=== PATIENT | male | born 1985 | race American Indian/Alaskan Native ===

== ENCOUNTER 2018-08-03 10:09 | Emergency (ER) | payer OTHER ==
[2018-08-03 10:15] VITALS: BP 163/110
[2018-08-03] MEDS ORDERED: XYLOCAINE 1% MPF 5 mL INFILTRATI ONE (10:40)
--- NOTE | 2018-08-03 10:40 | Emergency Department Report ---
- General Chief Complaint: Extremity Injury, Upper Stated Complaint: R FINGER INFECTED Time Seen by Provider: 08/03/18 10:33 Source: patient Mode of arrival: Ambulatory Limitations: No Limitations - History of Present Illness Initial Comments: Pt is a 32 yo male who presents to the ED with c/o edema and pain surrounding the nail bed of the right middle finger that began a week ago. The patient states that he bites his nails and bit his nail too short last week. 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 He denies any drainage. He denies any fever. The patient denies ever having this previously. He is able to move the digit without any difficulty. Pt also has a hx of HTN and is supposed to be taking medication but does not take it. - Related Data Previous Rx's Medication Instructions Recorded Last Taken Type Sulfamethoxazole/Trimethoprim 1 each PO BID 7 Days #14 tablet 08/03/18 Unknown Rx [Bactrim DS TAB] Allergies Allergy/AdvReac Type Severity Reaction Status Date / Time No Known Allergies Allergy Unverified 08/03/18 10:10 ED Review of Systems ROS: Stated complaint: R FINGER INFECTED Other details as noted in HPI Comment: All other systems reviewed and negative ED Past Medical Hx - Past Medical History Hx Hypertension: Yes - Surgical History Past Surgical History?: No - Social History Smoking Status: Current Every Day Smoker Substance Use Type: Alcohol, Marijuana - Medications Home Medications: Home Medications Medication Instructions Recorded Confirmed Last Taken Type Sulfamethoxazole/Trimethoprim 1 each PO BID 7 Days #14 tablet 08/03/18 Unknown Rx [Bactrim DS TAB] ED Physical Exam - General Limitations: No Limitations General appearance: alert, in no apparent distress - Head Head exam: Present: atraumatic, normocephalic - Eye Eye exam: Present: normal appearance - ENT ENT exam: Present: mucous membranes moist - Skin Skin exam: Present: other (edema and fluctuance surrounding the nail bed of the right middle finger, nails are very short from biting, exam findings consistent with paronychia) ED Course Vital Signs 08/03/18 10:12 Temperature 98.3 F Pulse Rate 83 Respiratory 18 Rate Blood Pressure 163/110 O2 Sat by Pulse 99 Oximetry - I & D Right Dorsal Finger Type of Procedure: Simple Site: right middle finger paronychia surrounding the nail bed Blade Size: 11 I & D Procedure: betadine prep, sterile drapes applied, sterile dressing applied Progress: paronychia present to the right middle finger, 1.5 cm incision made, moderate amount of purulent drainage, digital block with 5 cc used, pt tolerated well, prepped with betadine, sterile drapes used, sterile dressing applied ED Medical Decision Making - Medical Decision Making Pt presents with paronychia, I&D performed with purulent drainage, pt placed on batrim. Advised to follow up in the next 2-3 days with PCP. Take all medication as prescribed. Return to ED for new/worsening symptoms. Critical care attestation.: If time is entered above; I have spent that time in minutes in the direct care of this critically ill patient, excluding procedure time. ED Disposition Clinical Impression: Paronychia Disposition: - TO HOME OR SELFCARE Is pt being admited?: No Does the pt Need Aspirin: No Condition: Stable Instructions: Paronychia (ED) Additional Instructions: Follow up with your primary care doctor in the next 2-3 days. Take all medication as prescribed. NO hot tub, pool, bath tub, or dirty water. Return to the emergency room for any new or worsening symptoms. Prescriptions: Sulfamethoxazole/Trimethoprim [Bactrim DS TAB] 1 each PO BID 7 Days #14 tablet Referrals: PACO LAW MD [Primary Care Provider] - 2-3 Days Time of Disposition: 11:36 Print Language: [place] CITIZEN
== END 2018-08-03 11:45 | disposition home or self-care (01) ==
LOC: ED 10:09
DX: L03.011 Cellulitis of right finger (principal); I10 Essential (primary) hypertension; F17.200 Nicotine dependence, unspecified, uncomplicated; F12.10 Cannabis abuse, uncomplicated

== ENCOUNTER 2018-11-28 21:44 | Emergency (ER) | payer OTHER ==
[2018-11-28 22:00] VITALS: BP 163/104
[2018-11-28 23:06] LABS: Basophils # (Auto) 0.1 K/mm3 (0.0-0.1); Basophils % (Auto) 0.9 % (0.0-1.8); Eosinophils % (Auto) 0.7 % (0.0-4.3); Hematocrit 43.1 % (35.5-45.6); Hemoglobin 14.4 gm/dl (11.8-15.2); Lymphocytes # (Auto) 2.1 K/mm3 (1.2-5.4); Lymphocytes % (Auto) 35.4 % (13.4-35.0); Mean Corpuscular HGB Conc 34 % (32-34); Mean Corpuscular Volume 87 fl (84-94); Monocytes # (Auto) 0.7 K/mm3 (0.0-0.8); Monocytes % (Auto) 11.7 % (0.0-7.3); Platelet Count 228 K/mm3 (140-440); Red Blood Count 4.94 M/mm3 (3.65-5.03); Red Cell Distribution Width 14.8 % (13.2-15.2)
[2018-11-28 23:20] LABS: Alanine Aminotransferase 13 units/L (7-56); Albumin 4.4 g/dL (3.9-5); BUN/Creatinine Ratio 13; Blood Urea Nitrogen 10 mg/dL (9-20); Calcium 9.6 mg/dL (8.4-10.2); Hemolysis Index 13
[2018-11-29] MEDS ORDERED: ZITHROMAX PO ONE (00:11)
[2018-11-29] MEDS ORDERED: ROCEPHIN IM ONE (00:11)
[2018-11-29] MEDS ORDERED: XYLOCAINE 1% MPF 5 mL INFILTRATI ONE (00:11)
--- NOTE | 2018-11-29 00:36 | XRay Report ---
CHEST PA AND LATERAL VIEWS INDICATION: cough, hemoptysis. COMPARISON: None. FINDINGS: Support devices: None. Heart: Within normal limits. Lungs/Pleura: No acute pulmonary or pleural findings. IMPRESSION: 1. No significant abnormality. Signer Name: Rufino Hoffman MD Signed: 11/29/2018 12:31 AM Workstation Name: [id number]
--- NOTE | 2018-11-29 00:54 | Emergency Department Report ---
ED General Adult HPI - General Chief complaint: Headache Stated complaint: HIGH BP Time Seen by Provider: 11/28/18 23:25 Source: patient Mode of arrival: Ambulatory Limitations: No Limitations - History of Present Illness Initial comments: Patient is a 33 yo AA male with no past medical history who presents to the ED with c/o acute onset persistent penile discharge and urinary urgency and frequency and dysuria x 2 days. Patient also c/o persistent dry cough with on episode of hemoptysis which he describes as blood mixed with phlegm. Patient denies fever, chills, nausea, vomiting, abdominal pain, diarrhea, dizziness, chest pain or shortness of breath, testicular pain, low back pain or hematuria. Patient admits to smoking one pack a day of cigarettes. MD Complaint: dysuria, penile discharge, dry cough with hemoptysis -: Sudden, days(s) (2) Location: chest, genitals Radiation: non-radiation Severity scale (0 -10): 9 Quality: aching, sharp Consistency: intermittent Improves with: none Worsens with: none Associated Symptoms: denies other symptoms, cough. denies: confusion, chest pain, diaphoresis, fever/chills, headaches, loss of appetite, malaise, nausea/vomiting, rash, seizure, shortness of breath, syncope, weakness Treatments Prior to Arrival: none - Related Data Previous Rx's Medication Instructions Recorded Last Taken Type Ibuprofen 800 mg PO Q6HR PRN #15 tablet 08/03/18 Unknown Rx Ibuprofen [Motrin] 600 mg PO Q8H PRN #15 tablet 11/29/18 Unknown Rx Sulfamethoxazole/Trimethoprim 1 each PO BID 10 Days #20 tablet 11/29/18 Unknown Rx [Bactrim DS TAB] Allergies Allergy/AdvReac Type Severity Reaction Status Date / Time No Known Allergies Allergy Unverified 08/03/18 10:10 ED Review of Systems ROS: Stated complaint: HIGH BP Other details as noted in HPI Constitutional: denies: chills, fever Eyes: denies: eye pain, eye discharge, vision change ENT: denies: ear pain, throat pain Respiratory: cough, other (Hemoptysis). denies: shortness of breath, wheezing Cardiovascular: denies: chest pain, palpitations Endocrine: no symptoms reported Gastrointestinal: denies: abdominal pain, nausea, diarrhea Genitourinary: urgency, dysuria, discharge. denies: testicular pain, testicular mass Musculoskeletal: denies: back pain, joint swelling, arthralgia Skin: denies: rash, lesions Neurological: denies: headache, weakness, paresthesias Psychiatric: denies: anxiety, depression Hematological/Lymphatic: denies: easy bleeding, easy bruising ED Past Medical Hx - Past Medical History Previous Medical History?: Yes Hx Hypertension: Yes - Surgical History Past Surgical History?: No - Social History Smoking Status: Current Every Day Smoker - Medications Home Medications: Home Medications Medication Instructions Recorded Confirmed Last Taken Type Ibuprofen 800 mg PO Q6HR PRN #15 tablet 08/03/18 Unknown Rx Ibuprofen [Motrin] 600 mg PO Q8H PRN #15 tablet 11/29/18 Unknown Rx Sulfamethoxazole/Trimethoprim 1 each PO BID 10 Days #20 tablet 11/29/18 Unknown Rx [Bactrim DS TAB] ED Physical Exam - General Limitations: No Limitations General appearance: alert, in no apparent distress - Head Head exam: Present: atraumatic, normocephalic, normal inspection - Eye Eye exam: Present: normal appearance, PERRL, EOMI. Absent: scleral icterus, conjunctival injection, nystagmus Pupils: Present: normal accommodation - ENT ENT exam: Present: normal exam, normal orophraynx, mucous membranes moist, TM's normal bilaterally, normal external ear exam - Neck Neck exam: Present: normal inspection, full ROM. Absent: tenderness - Respiratory Respiratory exam: Present: normal lung sounds bilaterally. Absent: respiratory distress, wheezes, rales, rhonchi, chest wall tenderness, accessory muscle use, decreased breath sounds - Cardiovascular Cardiovascular Exam: Present: regular rate, normal rhythm, normal heart sounds. Absent: systolic murmur, diastolic murmur, rubs, gallop - GI/Abdominal GI/Abdominal exam: Present: soft, normal bowel sounds. Absent: tenderness, guarding, rebound - Rectal Rectal exam: Present: deferred - Extremities Exam Extremities exam: Present: normal inspection, full ROM, normal capillary refill - Back Exam Back exam: Present: normal inspection, full ROM. Absent: CVA tenderness (L), muscle spasm, paraspinal tenderness, vertebral tenderness - Neurological Exam Neurological exam: Present: alert, oriented X3, CN II-XII intact, normal gait, reflexes normal - Psychiatric Psychiatric exam: Present: normal affect, normal mood - Skin Skin exam: Present: warm, dry, intact, normal color. Absent: rash ED Course Vital Signs 11/28/18 11/28/18 21:56 22:29 Temperature 98.4 F 98.4 F Pulse Rate 79 79 Respiratory 18 18 Rate Blood Pressure 163/104 Blood Pressure 163/104 [Right] O2 Sat by Pulse 100 100 Oximetry - Reevaluation(s) Reevaluation #1: 11/29/18 01:03 Patient is alert and oriented 3 and is not in distress but anxious. Lab test results were reviewed and are unremarkable. Chest x-ray shows no acute cardiopulmonary abnormalities. Urinalysis shows acute urinary tract infection, sign of STD. Patient was treated for pain and empirically treated in the ED for suspected STD. On reevaluation, patient feeling better and patient is sent home on medications and advised to follow-up with [facility] for further tests and evaluation. Patient was advised to ensure that his sexual partner also gets tested and treated at the [facility]. Patient advised to return to the ED immediately if symptoms get worse. 11/29/18 01:49 ED Medical Decision Making - Lab Data Result diagrams: 11/28/18 22:50 11/28/18 22:50 - Radiology Data Radiology results: report reviewed, image reviewed Chest x-ray shows no acute cardiopulmonary abnormalities - Medical Decision Making Patient is alert and oriented 3 and is not in distress but anxious. Lab test results were reviewed and are unremarkable. Chest x-ray shows no acute cardiopu lmonary abnormalities. Urinalysis shows acute urinary tract infection, sign of STD. Patient was treated for pain and empirically treated in the ED for suspected STD. On reevaluation, patient feeling better and patient is sent home on medications and advised to follow-up with [facility] for further tests and evaluation. Patient was advised to ensure that his sexual partner also gets tested and treated at the [facility]. Patient advised to return to the ED immediately if symptoms get worse. - Differential Diagnosis acute bronchitis, STD, urethritis Critical care attestation.: If time is entered above; I have spent that time in minutes in the direct care of this critically ill patient, excluding procedure time. ED Disposition Clinical Impression: Acute urinary tract infection, STD (sexually transmitted disease), Urethritis, unspecified Acute bronchitis Qualifiers: Bronchitis organism: other organism Qualified Code(s): J20.8 - Acute bronchitis due to other specified organisms Disposition: DC- TO HOME OR SELFCARE Is pt being admited?: No Does the pt Need Aspirin: No Condition: Stable Instructions: Acute Bronchitis (ED), Nonspecific Urethritis in Men (ED), Sexually Transmitted Diseases (ED) Additional Instructions: Take medications with food, drink plenty of fluids and follow-up with your primary care physician [facility] in 3-5 days for reevaluation and test. Return to the ED immediately if symptoms get worse. Please ensure that his sexual partner also gets treated at the [facility]. Prescriptions: Sulfamethoxazole/Trimethoprim [Bactrim DS TAB] 1 each PO BID 10 Days #20 tablet Ibuprofen [Motrin] 600 mg PO Q8H PRN #15 tablet PRN Reason: Pain Referrals: PACO LAW MD [Primary Care Provider] - 3-5 Days [facility] [Outside] - 3-5 Days Forms: STI Treatment and Prevention Time of Disposition: 01:56 Print Language: [place]UNDI[place]
[2018-11-29 01:19] LABS: Bilirubin,Urine NEG (Negative); Blood,Urine NEG (Negative); Color,Urine Amber (Yellow); Mucus,Urine 3+ /HPF; Protein,Urine <15 mg/dL mg/dL (Negative)
== END 2018-11-29 02:10 | disposition home or self-care (01) ==
LOC: ED 21:44
DX: N39.0 Urinary tract infection, site not specified (principal); A64 Unspecified sexually transmitted disease; J20.9 Acute bronchitis, unspecified; F17.200 Nicotine dependence, unspecified, uncomplicated; I10 Essential (primary) hypertension; Z79.1 Long term (current) use of non-steroidal anti-inflammatories (NSAID)
CPT/HCPCS: 36415; 71046; 80053; 81001; 85025; 96372; 99284; J0696

== ENCOUNTER 2019-01-13 10:09 | Emergency (ER) | payer SELFPAY ==
[2019-01-13 10:17] VITALS: BP 146/101
--- NOTE | 2019-01-13 10:43 | Emergency Department Report ---
ED General Adult HPI - General Chief complaint: Skin Rash Stated complaint: WHITE BUMPS ON BUTTOCKS/DEHYDRATED Time Seen by Provider: 01/13/19 10:35 Source: patient Mode of arrival: Ambulatory Limitations: No Limitations - History of Present Illness Initial comments: Patient is 33 years old male with no significant past medical history except for hemorrhoids. Patient presented to the ER complaining of itching and a bulging mass on and off from his anal area. Patient stated that he was diagnosed as hemorrhoids before but did not follow-up with his surgeon. Patient denied any fever or chills. No hematochezia, melena or hematemesis. - Related Data Previous Rx's Medication Instructions Recorded Last Taken Type Ibuprofen 800 mg PO Q6HR PRN #15 tablet 08/03/18 Unknown Rx Ibuprofen [Motrin] 600 mg PO Q8H PRN #15 tablet 11/29/18 Unknown Rx Sulfamethoxazole/Trimethoprim 1 each PO BID 10 Days #20 tablet 11/29/18 Unknown Rx [Bactrim DS TAB] Allergies Allergy/AdvReac Type Severity Reaction Status Date / Time No Known Allergies Allergy Unverified 08/03/18 10:10 ED Review of Systems ROS: Stated complaint: WHITE BUMPS ON BUTTOCKS/DEHYDRATED Other details as noted in HPI Comment: All other systems reviewed and negative Constitutional: denies: chills, fever Cardiovascular: denies: chest pain Gastrointestinal: denies: abdominal pain, nausea Musculoskeletal: denies: back pain Neurological: denies: headache ED Past Medical Hx - Past Medical History Previous Medical History?: Yes Hx Hypertension: Yes Hx Asthma: Yes - Surgical History Past Surgical History?: No - Social History Smoking Status: Current Every Day Smoker Substance Use Type: None - Medications Home Medications: Home Medications Medication Instructions Recorded Confirmed Last Taken Type Ibuprofen 800 mg PO Q6HR PRN #15 tablet 08/03/18 Unknown Rx Ibuprofen [Motrin] 600 mg PO Q8H PRN #15 tablet 11/29/18 Unknown Rx Sulfamethoxazole/Trimethoprim 1 each PO BID 10 Days #20 tablet 11/29/18 Unknown Rx [Bactrim DS TAB] ED Physical Exam - General Limitations: No Limitations General appearance: alert, in no apparent distress - Head Head exam: Present: atraumatic, normocephalic, normal inspection - ENT ENT exam: Present: normal exam, normal orophraynx - Respiratory Respiratory exam: Present: normal lung sounds bilaterally - Cardiovascular Cardiovascular Exam: Present: regular rate, normal rhythm, normal heart sounds - GI/Abdominal GI/Abdominal exam: Present: soft, normal bowel sounds. Absent: distended, tenderness, guarding, rebound, rigid, organomegaly, mass, bruit, pulsatile mass, hernia - Rectal Rectal exam: Present: hemorrhoids - Back Exam Back exam: Present: normal inspection, full ROM. Absent: CVA tenderness (R), CVA tenderness (L) - Neurological Exam Neurological exam: Present: alert, oriented X3, CN II-XII intact, normal gait - Skin Skin exam: Present: warm, intact, normal color ED Course Vital Signs 01/13/19 10:15 Temperature 97.8 F Pulse Rate 68 Respiratory 16 Rate Blood Pressure 146/101 [Left] O2 Sat by Pulse 100 Oximetry Critical care attestation.: If time is entered above; I have spent that time in minutes in the direct care of this critically ill patient, excluding procedure time. ED Disposition Clinical Impression: Hemorrhoids Disposition: DC-01 TO HOME OR SELFCARE Is pt being admited?: No Condition: Stable Instructions: Hemorrhoids (ED) Referrals: NAV THOMPSON MD [Staff Physician] - 3-5 Days
== END 2019-01-13 11:14 | disposition home or self-care (01) ==
LOC: ED 10:09
DX: K64.9 Unspecified hemorrhoids (principal); I10 Essential (primary) hypertension; J45.909 Unspecified asthma, uncomplicated; F17.200 Nicotine dependence, unspecified, uncomplicated

== ENCOUNTER 2019-03-05 03:18 | Emergency (ER) | payer OTHER ==
--- NOTE | 2019-03-05 05:26 | Emergency Department Report ---
ED Eye Problem HPI - General Chief complaint: Eye Problems Stated complaint: LT EYE REDNESS Time Seen by Provider: 03/05/19 05:08 Source: patient Mode of arrival: Ambulatory Limitations: No Limitations - History of Present Illness Initial comments: pt is a 33-year-old male presents emergency room with complaints of left eye irritation and redness for 4 days. He has had associated drainage from the eye, crusting, eyelash matting. Denies any vision changes, contact lens use, getting anything into the eye. Denies any foreign body sensation. pt states that he has been told he has high blood pressure but is not taking any medication for it. He denies any allergies to medications. - Related Data Previous Rx's Medication Instructions Recorded Last Taken Type Ibuprofen 800 mg PO Q6HR PRN #15 tablet 08/03/18 Unknown Rx Ibuprofen [Motrin] 600 mg PO Q8H PRN #15 tablet 11/29/18 Unknown Rx Sulfamethoxazole/Trimethoprim 1 each PO BID 10 Days #20 tablet 11/29/18 Unknown Rx [Bactrim DS TAB] Hydrocortisone [Anucort-HC SUPPOS] 25 mg RC BID #12 supp.rect 01/13/19 Unknown Rx Erythromycin [Erythromycin Ophth 1 applic OS QID 7 Days #1 tube 03/05/19 Unknown Rx Oint] Allergies Allergy/AdvReac Type Severity Reaction Status Date / Time No Known Allergies Allergy Unverified 08/03/18 10:10 ED Review of Systems ROS: Stated complaint: LT EYE REDNESS Other details as noted in HPI Comment: All other systems reviewed and negative ED Past Medical Hx - Past Medical History Previous Medical History?: Yes Hx Hypertension: Yes Hx Asthma: Yes - Surgical History Past Surgical History?: No - Social History Smoking Status: Never Smoker Substance Use Type: None - Medications Home Medications: Home Medications Medication Instructions Recorded Confirmed Last Taken Type Ibuprofen 800 mg PO Q6HR PRN #15 tablet 08/03/18 Unknown Rx Ibuprofen [Motrin] 600 mg PO Q8H PRN #15 tablet 11/29/18 Unknown Rx Sulfamethoxazole/Trimethoprim 1 each PO BID 10 Days #20 tablet 11/29/18 Unknown Rx [Bactrim DS TAB] Hydrocortisone [Anucort-HC SUPPOS] 25 mg RC BID #12 supp.rect 01/13/19 Unknown Rx Erythromycin [Erythromycin Ophth 1 applic OS QID 7 Days #1 tube 03/05/19 Unknown Rx Oint] ED Physical Exam - General Limitations: No Limitations General appearance: alert, in no apparent distress - Head Head exam: Present: atraumatic, normocephalic - Eye Eye exam: Present: PERRL, EOMI, conjunctival injection (left), other (small amount of crusting present to the left eye lid). Absent: periorbital swelling, periorbital tenderness - ENT ENT exam: Present: mucous membranes moist - Neurological Exam Neurological exam: Present: alert, oriented X3 - Psychiatric Psychiatric exam: Present: normal affect, normal mood - Skin Skin exam: Present: warm, dry, intact ED Course Vital Signs 03/05/19 03/05/19 03:20 05:46 Temperature 97.3 F L Pulse Rate 68 66 Respiratory 18 16 Rate Blood Pressure 156/103 Blood Pressure 165/106 [Right] O2 Sat by Pulse 100 99 Oximetry ED Medical Decision Making - Medical Decision Making pt is a 33-year-old male presents emergency room with complaints of left eye irritation and redness for 4 days. He has had associated drainage from the eye, crusting, eyelash matting. Denies any vision changes, contact lens use, getting anything into the eye. Denies any foreign body sensation. pt states that he has been told he has high blood pressure but is not taking any medication for it. He denies any allergies to medications. vitals with elevated blood pressure otherwise normal. on exam: small amount of crusting present to the left eye lid, left conjunctival injection, PERRL, EOMI. pt given prescription for erythromycin ophthalmic ointment. advised pt to please use medication as prescribed. please wash your hands frequently. wash your bed sheets/pillowcase. Please do not rub the eye at all. Follow-up with a primary care doctor in the next 2-3 days for reexamination. Return to the emergency room for any new or worsening symptoms. discussed with pt the elevation in his blood pressure. advised pt to keep a blood pressure log, take his pressure three times a day and take it to his PCP. discussed to eat a low sodium diet. - Differential Diagnosis conjunctivitis, iritis, foreign body, horedeolum, chalazion Critical care attestation.: If time is entered above; I have spent that time in minutes in the direct care of this critically ill patient, excluding procedure time. ED Disposition Clinical Impression: Conjunctivitis Qualifiers: Conjunctivitis type: acute Acute conjunctivitis type: unspecified Laterality: left Qualified Code(s): H10.32 - Unspecified acute conjunctivitis, left eye Disposition: TO HOME OR SELFCARE Is pt being admited?: No Does the pt Need Aspirin: No Condition: Stable Instructions: Conjunctivitis (ED) Additional Instructions: Please use medication as prescribed. please wash your hands frequently. wash your bed sheets/pillowcase. Please do not rub the eye at all. Follow-up with a primary care doctor in the next 2-3 days for reexamination. Return to the emergency room for any new or worsening symptoms. Prescriptions: Erythromycin [Erythromycin Ophth Oint] 1 applic OS QID 7 Days #1 tube Referrals: PRIMARY CARE, [Primary Care Provider] - 2-3 Days Time of Disposition: 05:24 Print Language: TURKM[place]
[2019-03-05 05:49] VITALS: BP 165/106
== END 2019-03-05 05:46 | disposition home or self-care (01) ==
LOC: ED 03:18
DX: H10.9 Unspecified conjunctivitis (principal); I10 Essential (primary) hypertension; J45.909 Unspecified asthma, uncomplicated; Z79.899 Other long term (current) drug therapy

== ENCOUNTER 2019-05-08 10:33 | Emergency (ER) | payer OTHER ==
[2019-05-08 12:54] VITALS: BP 167/111
[2019-05-08] MEDS ORDERED: hydrALAZINE 25 MG TAB PO ONE (13:19)
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
== END 2019-05-08 13:48 | disposition home or self-care (01) ==
LOC: ED 10:33
DX: S39.012A Strain of muscle, fascia and tendon of lower back, initial encounter (principal); S16.1XXA Strain of muscle, fascia and tendon at neck level, initial encounter; I10 Essential (primary) hypertension; J45.909 Unspecified asthma, uncomplicated; F17.200 Nicotine dependence, unspecified, uncomplicated; Z79.899 Other long term (current) drug therapy; V43.62XA Car passenger injured in collision with other type car in traffic accident, initial encounter; Y93.89 Activity, other specified; Y92.410 Unspecified street and highway as the place of occurrence of the external cause; Y99.8 Other external cause status

== ENCOUNTER 2019-05-11 17:43 | Emergency (ER) | payer SELFPAY ==
[2019-05-11 17:49] VITALS: BP 177/117
== END 2019-05-11 18:00 | disposition left against medical advice (07) ==
LOC: ED 17:43
DX: M54.9 Dorsalgia, unspecified (principal); Z53.21 Procedure and treatment not carried out due to patient leaving prior to being seen by health care provider

== ENCOUNTER 2019-05-12 22:32 | Emergency (ER) | payer SELFPAY ==
[2019-05-12 23:14] VITALS: BP 152/101
== END 2019-05-12 23:51 | disposition left against medical advice (07) ==
LOC: ED 22:32
DX: Z53.21 Procedure and treatment not carried out due to patient leaving prior to being seen by health care provider (principal)

== ENCOUNTER 2019-05-13 04:32 | Emergency (ER) | payer SELFPAY ==
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
[2019-05-13] MEDS ORDERED: IBUPROFEN 800 MG TAB PO ONE (08:47)
[2019-05-13 08:58] VITALS: BP 138/88
== END 2019-05-13 08:57 | disposition left against medical advice (07) ==
LOC: ED 04:32
DX: S39.012S Strain of muscle, fascia and tendon of lower back, sequela (principal); Y92.89 Other specified places as the place of occurrence of the external cause

== ENCOUNTER 2019-07-21 13:39 | Emergency (ER) | payer SELFPAY ==
--- NOTE | 2019-07-21 17:30 | Emergency Department Report ---
Chief Complaint: Urogenital-Male Stated Complaint: STD Time Seen by Provider: 07/21/19 15:53 - HPI History of Present Illness: pt presents with routine STD testing states that he had unprotected intercourse no dysuria no penile no testicular testicular pain or edema no n/v/d no fever PMHx HTN, states he has not seen a PCP in awhile vitals with slightly elevated BP, otherwise normal he has no symptoms related to BP he is asymptomatic regarding STD he is requesting STD testing advised pt please follow up with the health department and a primary care clinic. please receive full STD testing. avoid sexual intercourse. have partners tested and treated. eat a low sodium diet. incorporate daily exercise. keep a blood pressure log and take your blood pressure three times a day. return to the emergency room for any new or worsening symptoms. Patient presenting with nonmedical emergency at this time, medical screen examination performed there is no threat to life or limb at this time Patient referred to the appropriate resources Discussed strict return precautions with patient MSE screening note: Focused history and physical exam performed. ED Disposition for MSE Clinical Impression: Concern about STD in male without diagnosis, Elevated blood pressure reading Disposition: MED SCREENING EXAM-LEFT Is pt being admited?: No Does the pt Need Aspirin: No Condition: Stable Instructions: Sexually Transmitted Diseases (ED), Safe Sex (ED), Chronic Hype rtension (ED) Additional Instructions: please follow up with the health department and a primary care clinic. please receive full STD testing. avoid sexual intercourse. have partners tested and treated. eat a low sodium diet. incorporate daily exercise. keep a blood pressure log and take your blood pressure three times a day. return to the emergency room for any new or worsening symptoms. Referrals: [facility] [Outside] - 2-3 Days CHANDRAKANT NEVILLE MD [Staff Physician] - 2-3 Days [facility] [Outside] - 2-[address] [facility] [Outside] - 2-3 Days Time of Disposition: 17:28 Print Language: CHINESE
[2019-07-21 17:49] VITALS: BP 160/98
== END 2019-07-21 17:49 | disposition left against medical advice (07) ==
LOC: ED 13:39
DX: I10 Essential (primary) hypertension (principal); Z71.1 Person with feared health complaint in whom no diagnosis is made
CPT/HCPCS: 99282

== ENCOUNTER 2019-07-25 21:05 | Emergency (ER) | payer SELFPAY ==
[2019-07-25 21:12] VITALS: BP 176/117
--- NOTE | 2019-07-25 21:42 | Event Note ---
ED Screening Note Date of service: 07/25/19 Time: 21:40 ED Screening Note: This is a 33 y.o. M. that presents to the ER with pain to right medial great to for 3 days. This initial assessment/diagnostic orders/clinical plan/treatment(s) is/are subject to change based on patients health status, clinical progression and re- assessment by fellow clinical providers in the ED. Further treatment and workup at subsequent clinical providers discretion. Patient/guardian urged not to elope from the ED as their condition may be serious if not clinically assessed and managed. Initial orders include: XR right toes
--- NOTE | 2019-07-25 22:28 | XRay Report ---
RIGHT TOES 3 VIEWS INDICATION / CLINICAL INFORMATION: Right great toe pain. COMPARISON: None available. FINDINGS: BONES / JOINT(S): No acute fracture or subluxation. No significant arthritis. No erosions are seen. SOFT TISSUES: No significant abnormality. ADDITIONAL FINDINGS: None. Signer Name: Sylvester Patel MD Signed: 07/25/2019 10:24 PM Workstation Name: [id number]
== END 2019-07-25 23:00 | disposition left against medical advice (07) ==
LOC: ED 21:05
DX: M79.674 Pain in right toe(s) (principal); Z53.21 Procedure and treatment not carried out due to patient leaving prior to being seen by health care provider

== ENCOUNTER 2019-07-29 00:15 | Emergency (ER) | payer SELFPAY ==
[2019-07-29 02:13] VITALS: BP 150/99
[2019-07-29] MEDS ORDERED: IBUPROFEN 800 MG TAB PO ONE (02:46)
--- NOTE | 2019-07-29 03:15 | Emergency Department Report ---
ED Lower Extremity HPI - General Chief Complaint: Extremity Injury, Lower Stated Complaint: FEET SWELLING W/PAIN Time Seen by Provider: 07/29/19 02:46 Source: patient Mode of arrival: Ambulatory Limitations: No Limitations - History of Present Illness Initial Comments: Mr. Thrasher is a 33-year-old -Japanese male who presents with bilateral foot pain. He denies fall injury or trauma. Pain is 5/10 intermittent exacerbated by prolonged walking and standing. States he walks and works on his feet 10 to 12 hours a day. There is no open wound, weeping ,or swelling. Patient remains amatory with steady gait. Symptoms have persisted for the past week , MD Complaint: foot injury Onset/Timin Injury: Foot: Right, Left Type of Injury: unknown Place: home Severity: moderate Severity scale (0 -10): 4 Improves With: nothing Worsens With: weight bearing, movement, palpation Associated Symptoms: ambulatory - Related Data Previous Rx's Medication Instructions Recorded Last Taken Type Ibuprofen 800 mg PO Q6HR PRN #15 tablet 08/03/18 Unknown Rx Ibuprofen [Motrin] 600 mg PO Q8H PRN #15 tablet 11/29/18 Unknown Rx Sulfamethoxazole/Trimethoprim 1 each PO BID 10 Days #20 tablet 11/29/18 Unknown Rx [Bactrim DS TAB] Hydrocortisone [Anucort-HC SUPPOS] 25 mg RC BID #12 supp.rect 01/13/19 Unknown Rx Erythromycin [Erythromycin Ophth 1 applic OS QID 7 Days #1 tube 03/05/19 Unknown Rx Oint] Ibuprofen [Motrin 800 MG tab] 800 mg PO Q8HR PRN #21 tablet 05/08/19 Unknown Rx methOCARBAMOL [Robaxin TAB] 1,500 mg PO Q8H PRN #18 tablet 05/08/19 Unknown Rx Ibuprofen [Motrin 800 MG tab] 800 mg PO Q8HR 7 Days #21 tablet 05/13/19 Unknown Rx Allergies Allergy/AdvReac Type Severity Reaction Status Date / Time No Known Allergies Allergy Verified 07/29/19 00:23 ED Review of Systems ROS: Stated complaint: FEET SWELLING W/PAIN Other details as noted in HPI Constitutional: denies: chills, fever Eyes: denies: eye pain, eye discharge, vision change ENT: denies: ear pain, throat pain Respiratory: denies: cough, shortness of breath, wheezing Cardiovascular: denies: chest pain, palpitations Endocrine: no symptoms reported Gastrointestinal: denies: abdominal pain, nausea, diarrhea Genitourinary: denies: urgency, dysuria Musculoskeletal: other (They have interactions with other people bilat foot pain test positivebehind the ). denies: back pain, joint swelling, arthralgia Skin: denies: rash, lesions Neurological: denies: headache, weakness, paresthesias Psychiatric: denies: anxiety, depression Hematological/Lymphatic: denies: easy bleeding, easy bruising ED Past Medical Hx - Past Medical History Previous Medical History?: Yes Hx Hypertension: Yes Hx Asthma: Yes - Surgical History Past Surgical History?: No - Social History Smoking Status: Never Smoker Substance Use Type: Alcohol, Marijuana - Medications Home Medications: Home Medications Medication Instructions Recorded Confirmed Last Taken Type Ibuprofen 800 mg PO Q6HR PRN #15 tablet 08/03/18 Unknown Rx Ibuprofen [Motrin] 600 mg PO Q8H PRN #15 tablet 11/29/18 Unknown Rx Sulfamethoxazole/Trimethoprim 1 each PO BID 10 Days #20 tablet 11/29/18 Unknown Rx [Bactrim DS TAB] Hydrocortisone [Anucort-HC SUPPOS] 25 mg RC BID #12 supp.rect 01/13/19 Unknown Rx Erythromycin [Erythromycin Ophth 1 applic OS QID 7 Days #1 tube 03/05/19 Unknown Rx Oint] Ibuprofen [Motrin 800 MG tab] 800 mg PO Q8HR PRN #21 tablet 05/08/19 Unknown Rx methOCARBAMOL [Robaxin TAB] 1,500 mg PO Q8H PRN #18 tablet 05/08/19 Unknown Rx Ibuprofen [Motrin 800 MG tab] 800 mg PO Q8HR 7 Days #21 tablet 05/13/19 Unknown Rx ED Physical Exam - General Limitations: No Limitations General appearance: alert, in no apparent distress - Head Head exam: Present: atraumatic, normocephalic - Eye Eye exam: Present: normal appearance, PERRL, EOMI Pupils: Present: normal accommodation - ENT ENT exam: Present: mucous membranes moist - Neck Neck exam: Present: normal inspection - Respiratory Respiratory exam: Absent: respiratory distress - Cardiovascular Cardiovascular Exam: Present: regular rate, normal rhythm, normal heart sounds. Absent: systolic murmur, diastolic murmur, rubs, gallop - GI/Abdominal GI/Abdominal exam: Absent: tenderness - Rectal Rectal exam: Present: deferred - Extremities Exam Extremities exam: Present: normal inspection, tenderness (bilat instep plantar foot no erythem bilat bunions hard no ecchymosis, no swelling distal pulses intact ) - Back Exam Back exam: Present: normal inspection, full ROM. Absent: tenderness - Neurological Exam Neurological exam: Present: alert, oriented X3, normal gait. Absent: CN II-XII intact - Psychiatric Psychiatric exam: Present: normal affect, normal mood - Skin Skin exam: Present: warm, dry, intact, normal color. Absent: rash ED Course Vital Signs 07/29/19 00:20 Temperature 97.5 F L Pulse Rate 84 Respiratory 18 Rate Blood Pressure 150/99 O2 Sat by Pulse 100 Oximetry ED Lower Extremity MDM - Medical Decision Making This is foot pain without cellulitis injury or trauma. Patient given referral to podiatry, will take [id number] NSAIDs as needed for pain. Distal pulses are intact patient is amatory steady gait with no acute distress. Critical care attestation.: If time is entered above; I have spent that time in minutes in the direct care of this critically ill patient, excluding procedure time. ED Disposition Clinical Impression: Bilateral bunions, Foot pain, bilateral Disposition: DC-01 TO HOME OR SELFCARE Is pt being admited?: No Does the pt Need Aspirin: No Condition: Stable Instructions: Amalia (ED) Referrals: JOSE DAVID MATTHEWS DPM [Staff Physician] - 3-5 Days Forms: Work/School Release Form(ED) Time of Disposition: 03:18
== END 2019-07-29 04:07 | disposition home or self-care (01) ==
LOC: ED 00:15
DX: M21.612 Bunion of left foot (principal); M21.611 Bunion of right foot; I10 Essential (primary) hypertension; J45.909 Unspecified asthma, uncomplicated; F12.10 Cannabis abuse, uncomplicated; Z79.1 Long term (current) use of non-steroidal anti-inflammatories (NSAID); Z79.899 Other long term (current) drug therapy
CPT/HCPCS: 99282

== ENCOUNTER 2019-07-29 08:15 | Emergency (ER) | payer SELFPAY ==
[2019-07-29 08:54] VITALS: BP 150/94
--- NOTE | 2019-07-29 11:30 | Emergency Department Report ---
ED General Adult HPI - General Chief complaint: Extremity Problem,Nontraumatic Stated complaint: BOTH FEET HURT Time Seen by Provider: 07/29/19 11:18 Source: patient Mode of arrival: Ambulatory Limitations: No Limitations - History of Present Illness Initial comments: 33-year-old Filipino male presents emerged department complaining of a painful feet of an unknown etiology has a very strong suspicion for infectious process. States he was in the shower noticed his feet becoming red and alvarez color with some swelling but no discharge. Ports no no fever, chills, sweats no chest pain palpitations no known trauma. He reports no known overuse but has been wearing some shoes that may have been a tad bit tighter. He does not think this is the culprit but is been trying ibuprofen with no improvement - Related Data Previous Rx's Medication Instructions Recorded Last Taken Type Ibuprofen 800 mg PO Q6HR PRN #15 tablet 08/03/18 Unknown Rx Ibuprofen [Motrin] 600 mg PO Q8H PRN #15 tablet 11/29/18 Unknown Rx Sulfamethoxazole/Trimethoprim 1 each PO BID 10 Days #20 tablet 11/29/18 Unknown Rx [Bactrim DS TAB] Hydrocortisone [Anucort-HC SUPPOS] 25 mg RC BID #12 supp.rect 01/13/19 Unknown Rx Erythromycin [Erythromycin Ophth 1 applic OS QID 7 Days #1 tube 03/05/19 Unknown Rx Oint] Ibuprofen [Motrin 800 MG tab] 800 mg PO Q8HR PRN #21 tablet 05/08/19 Unknown Rx methOCARBAMOL [Robaxin TAB] 1,500 mg PO Q8H PRN #18 tablet 05/08/19 Unknown Rx Ibuprofen [Motrin 800 MG tab] 800 mg PO Q8HR 7 Days #21 tablet 05/13/19 Unknown Rx Ketorolac [Toradol] 10 mg PO Q6H PRN #20 tablet 07/29/19 Unknown Rx Allergies Allergy/AdvReac Type Severity Reaction Status Date / Time No Known Allergies Allergy Verified 07/29/19 00:23 ED Review of Systems ROS: Stated complaint: BOTH FEET HURT Other details as noted in HPI Comment: All other systems reviewed and negative ED Past Medical Hx - Past Medical History Previous Medical History?: Yes Hx Hypertension: Yes Hx Asthma: Yes - Social History Smoking Status: Never Smoker Substance Use Type: Alcohol, Marijuana - Medications Home Medications: Home Medications Medication Instructions Recorded Confirmed Last Taken Type Ibuprofen 800 mg PO Q6HR PRN #15 tablet 08/03/18 Unknown Rx Ibuprofen [Motrin] 600 mg PO Q8H PRN #15 tablet 11/29/18 Unknown Rx Sulfamethoxazole/Trimethoprim 1 each PO BID 10 Days #20 tablet 11/29/18 Unknown Rx [Bactrim DS TAB] Hydrocortisone [Anucort-HC SUPPOS] 25 mg RC BID #12 supp.rect 01/13/19 Unknown Rx Erythromycin [Erythromycin Ophth 1 applic OS QID 7 Days #1 tube 03/05/19 Unknown Rx Oint] Ibuprofen [Motrin 800 MG tab] 800 mg PO Q8HR PRN #21 tablet 05/08/19 Unknown Rx methOCARBAMOL [Robaxin TAB] 1,500 mg PO Q8H PRN #18 tablet 05/08/19 Unknown Rx Ibuprofen [Motrin 800 MG tab] 800 mg PO Q8HR 7 Days #21 tablet 05/13/19 Unknown Rx Ketorolac [Toradol] 10 mg PO Q6H PRN #20 tablet 07/29/19 Unknown Rx ED Physical Exam - General Limitations: No Limitations General appearance: alert, in no apparent distress - Head Head exam: Present: atraumatic, normocephalic - Eye Eye exam: Present: normal appearance - ENT ENT exam: Present: mucous membranes moist - Neck Neck exam: Present: normal inspection - Respiratory Respiratory exam: Present: normal lung sounds bilaterally. Absent: respiratory distress - Cardiovascular Cardiovascular Exam: Present: regular rate, normal rhythm. Absent: systolic murmur, diastolic murmur, rubs, gallop - GI/Abdominal GI/Abdominal exam: Present: soft, normal bowel sounds - Rectal Rectal exam: Present: deferred - Extremities Exam Extremities exam: Present: normal inspection, tenderness (To the the hallux at the metatarsophalangeal joint. There is some swelling minimal redness pain with manipulation of the hallux.) - Back Exam Back exam: Present: normal inspection. Absent: CVA tenderness (R), CVA tenderness (L), muscle spasm - Neurological Exam Neurological exam: Present: alert, oriented X3 - Psychiatric Psychiatric exam: Present: normal affect, normal mood - Skin Skin exam: Present: warm, dry, intact, normal color. Absent: rash ED Course Vital Signs 07/29/19 08:45 Temperature 97.6 F Pulse Rate 59 L Respiratory 18 Rate Blood Pressure 150/94 O2 Sat by Pulse 100 Oximetry Critical care attestation.: If time is entered above; I have spent that time in minutes in the direct care of this critically ill patient, excluding procedure time. ED Disposition Clinical Impression: Podagra Disposition: DC-01 TO HOME OR SELFCARE Is pt being admited?: No Does the pt Need Aspirin: No Condition: Stable Instructions: Acute Gouty Arthritis (ED), Arthralgia (ED) Prescriptions: Ketorolac [Toradol] 10 mg PO Q6H PRN #20 tablet PRN Reason: Pain Referrals: ARUNA RDZ DPM [Referring] - 3-5 Days CESAR MORRISON [Referring] - 3-5 Days TREY MIDDLETON MD [Referring] - 3-5 Days WESTON GIRON MD [Staff Physician] - 3-5 Days PRIMARY CARE, [Primary Care Provider] - 3-5 Days
== END 2019-07-29 11:43 | disposition home or self-care (01) ==
LOC: ED 08:15
DX: M10.9 Gout, unspecified (principal); I10 Essential (primary) hypertension; J45.909 Unspecified asthma, uncomplicated; F12.10 Cannabis abuse, uncomplicated; Z79.1 Long term (current) use of non-steroidal anti-inflammatories (NSAID); Z79.899 Other long term (current) drug therapy
CPT/HCPCS: 99281

== ENCOUNTER 2019-08-02 01:36 | Emergency (ER) | payer SELFPAY ==
[2019-08-02] MEDS ORDERED: predniSONE 20 MG TAB PO ONE (04:11)
[2019-08-02] MEDS ORDERED: COLCHICINE 0.6 MG CAP PO ONE (04:11)
[2019-08-02] MEDS ORDERED: traMADol 50 MG TAB PO ONE (04:11)
[2019-08-02] MEDS ORDERED: INDOMETHACIN 25 MG CAP PO ONE (04:11)
--- NOTE | 2019-08-02 04:58 | Emergency Department Report ---
ED Extremity Problem HPI - General Chief complaint: Extremity Problem,Nontraumatic Stated complaint: RT FOOT PAIN Source: patient Mode of arrival: Ambulatory Limitations: No Limitations - History of Present Illness Initial comments: Patient is a 33-year-old male with a history of gout who presents to the ED with complaint of acute onset persistent right foot and right great toe pain for the last 2 weeks. Patient states that he has been to an urgent care clinic as well as to [facility] and has been taking ibuprofen that was prescribed but that the pain is worsened in the last 3 days. Patient denies fall, traumatic injury, numbness and tingling or weakness of right foot, dizziness, fever, chills, nausea, vomiting, back pain, chest pain or shortness of breath. MD Complaint: extremity pain (right foot pain; right great toe pain), extremity swelling, joint swelling (right great toe swelling), joint paint -: Sudden, week(s) (2) Location: right, lower extremity (foot), toe (right great toe) History of Same: No -: Yes myalgia, Yes arthralgia, No fever, No associated dyspnea, No associated chest pain Radiation: distal Severity scale (0 -10): 10 Quality: aching, sharp Consistency: constant Improves with: nothing Worsens with: weight bearing, walking, exertion, palpation Associated Symptoms: denies other symptoms, arthralgias. denies: chest pain, shortness of breath, fever, myalgias, rash, other - Related Data Previous Rx's Medication Instructions Recorded Last Taken Type Ibuprofen 800 mg PO Q6HR PRN #15 tablet 08/03/18 Unknown Rx Ibuprofen [Motrin] 600 mg PO Q8H PRN #15 tablet 11/29/18 Unknown Rx Sulfamethoxazole/Trimethoprim 1 each PO BID 10 Days #20 tablet 11/29/18 Unknown Rx [Bactrim DS TAB] Hydrocortisone [Anucort-HC SUPPOS] 25 mg RC BID #12 supp.rect 01/13/19 Unknown Rx Erythromycin [Erythromycin Ophth 1 applic OS QID 7 Days #1 tube 03/05/19 Unknown Rx Oint] Ibuprofen [Motrin 800 MG tab] 800 mg PO Q8HR PRN #21 tablet 05/08/19 Unknown Rx methOCARBAMOL [Robaxin TAB] 1,500 mg PO Q8H PRN #18 tablet 05/08/19 Unknown Rx Ibuprofen [Motrin 800 MG tab] 800 mg PO Q8HR 7 Days #21 tablet 05/13/19 Unknown Rx Ketorolac [Toradol] 10 mg PO Q6H PRN #20 tablet 07/29/19 Unknown Rx Colchicine [Gloperba] 0.6 mg PO Q8H PRN #15 solution 08/02/19 Unknown Rx Indomethacin 50 mg PO Q8H PRN #45 capsule 08/02/19 Unknown Rx predniSONE [Deltasone] 60 mg PO QDAY #15 tab 08/02/19 Unknown Rx traMADoL [Ultram] 50 mg PO Q6HR PRN #12 tablet 08/02/19 Unknown Rx Allergies Allergy/AdvReac Type Severity Reaction Status Date / Time No Known Allergies Allergy Verified 07/29/19 00:23 ED Review of Systems ROS: Stated complaint: RT FOOT PAIN Other details as noted in HPI Constitutional: denies: chills, fever Eyes: denies: eye pain, eye discharge, vision change ENT: denies: ear pain, throat pain Respiratory: denies: cough, shortness of breath, wheezing Cardiovascular: denies: chest pain, palpitations Endocrine: no symptoms reported Gastrointestinal: denies: abdominal pain, nausea, diarrhea Genitourinary: denies: urgency, dysuria Musculoskeletal: joint swelling (right great toe and foot swelling with pain), arthralgia (right foot and great toe pain). denies: back pain Skin: denies: rash, lesions Neurological: denies: headache, weakness, paresthesias Psychiatric: denies: anxiety, depression Hematological/Lymphatic: denies: easy bleeding, easy bruising ED Past Medical Hx - Past Medical History Previous Medical History?: Yes Hx Hypertension: Yes Hx Asthma: Yes Additional medical history: GOUT, BUNION - Surgical History Past Surgical History?: No - Social History Smoking Status: Current Every Day Smoker Substance Use Type: None - Medications Home Medications: Home Medications Medication Instructions Recorded Confirmed Last Taken Type Ibuprofen 800 mg PO Q6HR PRN #15 tablet 08/03/18 Unknown Rx Ibuprofen [Motrin] 600 mg PO Q8H PRN #15 tablet 11/29/18 Unknown Rx Sulfamethoxazole/Trimethoprim 1 each PO BID 10 Days #20 tablet 11/29/18 Unknown Rx [Bactrim DS TAB] Hydrocortisone [Anucort-HC SUPPOS] 25 mg RC BID #12 supp.rect 01/13/19 Unknown Rx Erythromycin [Erythromycin Ophth 1 applic OS QID 7 Days #1 tube 03/05/19 Unknown Rx Oint] Ibuprofen [Motrin 800 MG tab] 800 mg PO Q8HR PRN #21 tablet 05/08/19 Unknown Rx methOCARBAMOL [Robaxin TAB] 1,500 mg PO Q8H PRN #18 tablet 05/08/19 Unknown Rx Ibuprofen [Motrin 800 MG tab] 800 mg PO Q8HR 7 Days #21 tablet 05/13/19 Unknown Rx Ketorolac [Toradol] 10 mg PO Q6H PRN #20 tablet 07/29/19 Unknown Rx Colchicine [Gloperba] 0.6 mg PO Q8H PRN #15 solution 08/02/19 Unknown Rx Indomethacin 50 mg PO Q8H PRN #45 capsule 08/02/19 Unknown Rx predniSONE [Deltasone] 60 mg PO QDAY #15 tab 08/02/19 Unknown Rx traMADoL [Ultram] 50 mg PO Q6HR PRN #12 tablet 08/02/19 Unknown Rx ED Physical Exam - General Limitations: No Limitations General appearance: alert, in no apparent distress - Head Head exam: Present: atraumatic, normocephalic, normal inspection - Eye Eye exam: Present: normal appearance, PERRL, EOMI Pupils: Present: normal accommodation - ENT ENT exam: Present: normal exam, normal orophraynx, mucous membranes moist, TM's normal bilaterally, normal external ear exam - Neck Neck exam: Present: normal inspection, full ROM. Absent: tenderness, lymphadenopathy - Respiratory Respiratory exam: Present: normal lung sounds bilaterally. Absent: respiratory distress, wheezes, rales, rhonchi, chest wall tenderness, accessory muscle use, decreased breath sounds, prolonged expiratory - Cardiovascular Cardiovascular Exam: Present: regular rate, normal rhythm, normal heart sounds. Absent: systolic murmur, diastolic murmur, rubs, gallop - GI/Abdominal GI/Abdominal exam: Present: soft, normal bowel sounds. Absent: tenderness, guarding, rebound, hyperactive bowel sounds, hypoactive bowel sounds - Extremities Exam Extremities exam: Present: normal inspection, full ROM, tenderness (palpable right great toe and foot tenderness), normal capillary refill, joint swelling (Right great toe and right foot tenderness with mild swelling). Absent: calf tenderness - Back Exam Back exam: Present: normal inspection, full ROM. Absent: tenderness, CVA tenderness (R), CVA tenderness (L), muscle spasm, paraspinal tenderness, vertebral tenderness - Neurological Exam Neurological exam: Present: alert, oriented X3, CN II-XII intact, normal gait, reflexes normal - Psychiatric Psychiatric exam: Present: normal affect, normal mood - Skin Skin exam: Present: warm, dry, intact, normal color. Absent: rash ED Course Vital Signs 08/02/19 08/02/19 01:54 04:20 Temperature 97.9 F Pulse Rate 72 Respiratory 20 18 Rate Blood Pressure 151/111 O2 Sat by Pulse 100 Oximetry ED Medical Decision Making - Medical Decision Making This is a 33-year-old male with a history of gout who presents to the ED with complaint of acute onset persistent right foot and right great toe pain for the last 2 weeks. Patient states that he has been to an urgent care clinic as well as to [facility] and has been taking ibuprofen that was prescribed but that the pain is worsened in the last 3 days. In the ED, patient is alert and oriented x3 and is not in any distress. Patient was treated for pain in the ED and on reevaluation, patient's pain is well controlled with medications. Patient was discharged home on medications and advised to follow-up with his primary care physician in 7 to 10 days for reevaluation. Patient was also counseled on the proper dieting requirements of gout. Patient verbalized understanding and promised to comply. - Differential Diagnosis Gouty arthropathy; DJD; Muscle strain Critical care attestation.: If time is entered above; I have spent that time in minutes in the direct care of this critically ill patient, excluding procedure time. ED Disposition Clinical Impression: Foot pain, bilateral, Acute gouty arthropathy, Acute pain of right foot Disposition: DC-01 TO HOME OR SELFCARE Is pt being admited?: No Does the pt Need Aspirin: No Condition: Stable Instructions: Arthralgia (ED), Acute Gouty Arthritis (ED) Additional Instructions: Take medication with food, drink plenty of fluids and follow-up with your primary care physician in 7 to 10 days for reevaluation. Return to the ED immediately if symptoms get worse. Prescriptions: predniSONE [Deltasone] 60 mg PO QDAY #15 tab Colchicine [Gloperba] 0.6 mg PO Q8H PRN #15 solution PRN Reason: Pain , Severe (7-10) Indomethacin 50 mg PO Q8H PRN #45 capsule PRN Reason: Pain , Severe (7-10) traMADoL [Ultram] 50 mg PO Q6HR PRN #12 tablet PRN Reason: Pain Referrals: [facility] [Outside] - 3-5 Days Time of Disposition: 04:55 Print Language: NIGERIEN
[2019-08-02 05:40] VITALS: BP 134/97
== END 2019-08-02 05:41 | disposition home or self-care (01) ==
LOC: ED 01:36
DX: M10.9 Gout, unspecified (principal); M79.671 Pain in right foot; M79.672 Pain in left foot; I10 Essential (primary) hypertension; J45.909 Unspecified asthma, uncomplicated; F17.200 Nicotine dependence, unspecified, uncomplicated; Z79.1 Long term (current) use of non-steroidal anti-inflammatories (NSAID); Z79.899 Other long term (current) drug therapy
CPT/HCPCS: 99282; J7512

== ENCOUNTER 2019-08-04 18:56 | Emergency (ER) | payer SELFPAY ==
--- NOTE | 2019-08-04 19:28 | Emergency Department Report ---
Blank Doc - Documentation Documentation: 33-year-old male that presents with abdominal pain with n/v. This initial assessment/diagnostic orders/clinical plan/treatment(s) is/are subject to change based on patient's health status, clinical progression and re- assessment by fellow clinical providers in the ED. Further treatment and workup at subsequent clinical providers discretion. Patient/guardians urged not to elope from the ED as their condition may be serious if not clinically assessed and managed. Initial orders include: 1- Patient sent to [facility] for further evaluation and treatment 2- labs 3- UA
[2019-08-04 19:40] LABS: Basophils # (Auto) 0.1 K/mm3 (0.0-0.1); Basophils % (Auto) 0.9 % (0.0-1.8); Eosinophils # (Auto) 0.1 K/mm3 (0.0-0.4); Eosinophils % (Auto) 1.5 % (0.0-4.3); Hematocrit 40.7 % (35.5-45.6); Hemoglobin 13.7 gm/dl (11.8-15.2); Mean Corpuscular HGB Conc 34 % (32-34); Mean Corpuscular Volume 87 fl (84-94); Monocytes # (Auto) 0.6 K/mm3 (0.0-0.8); Monocytes % (Auto) 8.9 % (0.0-7.3); Platelet Count 238 K/mm3 (140-440); Red Blood Count 4.68 M/mm3 (3.65-5.03); Red Cell Distribution Width 15.7 % (13.2-15.2)
[2019-08-04 19:54] LABS: Alanine Aminotransferase 11 units/L (7-56); Albumin 4.3 g/dL (3.9-5); BUN/Creatinine Ratio 14; Blood Urea Nitrogen 11 mg/dL (9-20); Calcium 9.5 mg/dL (8.4-10.2); Hemolysis Index 8
[2019-08-04 20:28] VITALS: BP 146/82
[2019-08-04] MEDS ORDERED: ONDANSETRON 4 MG ODT TAB PO STA (20:34)
--- NOTE | 2019-08-04 20:40 | Emergency Department Report ---
ED Abdominal Pain HPI - General Chief Complaint: Abdominal Pain Stated Complaint: STOMACH BLEEDING Time Seen by Provider: 08/04/19 19:28 Source: patient Mode of arrival: Ambulatory Limitations: No Limitations - History of Present Illness MD Complaint: abdominal pain -: Sudden Location: suprapubic Radiation: none Migration to: no migration Severity: mild Consistency: constant Improves With: nothing Worsens With: nothing Associated Symptoms: nausea, vomiting. denies: hematemesis, melena, hematuria, anorexia, syncope - Related Data Previous Rx's Medication Instructions Recorded Last Taken Type Ibuprofen 800 mg PO Q6HR PRN #15 tablet 08/03/18 Unknown Rx Ibuprofen [Motrin] 600 mg PO Q8H PRN #15 tablet 11/29/18 Unknown Rx Sulfamethoxazole/Trimethoprim 1 each PO BID 10 Days #20 tablet 11/29/18 Unknown Rx [Bactrim DS TAB] Hydrocortisone [Anucort-HC SUPPOS] 25 mg RC BID #12 supp.rect 01/13/19 Unknown Rx Erythromycin [Erythromycin Ophth 1 applic OS QID 7 Days #1 tube 03/05/19 Unknown Rx Oint] Ibuprofen [Motrin 800 MG tab] 800 mg PO Q8HR PRN #21 tablet 05/08/19 Unknown Rx methOCARBAMOL [Robaxin TAB] 1,500 mg PO Q8H PRN #18 tablet 05/08/19 Unknown Rx Ibuprofen [Motrin 800 MG tab] 800 mg PO Q8HR 7 Days #21 tablet 05/13/19 Unknown Rx Ketorolac [Toradol] 10 mg PO Q6H PRN #20 tablet 07/29/19 Unknown Rx Colchicine [Gloperba] 0.6 mg PO Q8H PRN #15 solution 08/02/19 Unknown Rx Indomethacin 50 mg PO Q8H PRN #45 capsule 08/02/19 Unknown Rx predniSONE [Deltasone] 60 mg PO QDAY #15 tab 08/02/19 Unknown Rx traMADoL [Ultram] 50 mg PO Q6HR PRN #12 tablet 08/02/19 Unknown Rx Hyoscyamine Subl [Levsin Sl 0.125 0.125 mg SL Q6HR PRN #20 tab 08/04/19 Unknown Rx TAB] Ondansetron [Zofran ODT TAB] 8 mg PO Q12HR #14 tab.rapdis 08/04/19 Unknown Rx Allergies Allergy/AdvReac Type Severity Reaction Status Date / Time No Known Allergies Allergy Verified 07/29/19 00:23 ED Review of Systems ROS: Stated complaint: STOMACH BLEEDING Other details as noted in HPI Comment: All other systems reviewed and negative ED Past Medical Hx - Past Medical History Previous Medical History?: Yes Hx Hypertension: Yes Hx Asthma: Yes Additional medical history: GOUT, BUNION - Surgical History Past Surgical History?: No - Social History Smoking Status: Never Smoker Substance Use Type: None - Medications Home Medications: Home Medications Medication Instructions Recorded Confirmed Last Taken Type Ibuprofen 800 mg PO Q6HR PRN #15 tablet 08/03/18 Unknown Rx Ibuprofen [Motrin] 600 mg PO Q8H PRN #15 tablet 11/29/18 Unknown Rx Sulfamethoxazole/Trimethoprim 1 each PO BID 10 Days #20 tablet 11/29/18 Unknown Rx [Bactrim DS TAB] Hydrocortisone [Anucort-HC SUPPOS] 25 mg RC BID #12 supp.rect 01/13/19 Unknown Rx Erythromycin [Erythromycin Ophth 1 applic OS QID 7 Days #1 tube 03/05/19 Unknown Rx Oint] Ibuprofen [Motrin 800 MG tab] 800 mg PO Q8HR PRN #21 tablet 05/08/19 Unknown Rx methOCARBAMOL [Robaxin TAB] 1,500 mg PO Q8H PRN #18 tablet 05/08/19 Unknown Rx Ibuprofen [Motrin 800 MG tab] 800 mg PO Q8HR 7 Days #21 tablet 05/13/19 Unknown Rx Ketorolac [Toradol] 10 mg PO Q6H PRN #20 tablet 07/29/19 Unknown Rx Colchicine [Gloperba] 0.6 mg PO Q8H PRN #15 solution 08/02/19 Unknown Rx Indomethacin 50 mg PO Q8H PRN #45 capsule 08/02/19 Unknown Rx predniSONE [Deltasone] 60 mg PO QDAY #15 tab 08/02/19 Unknown Rx traMADoL [Ultram] 50 mg PO Q6HR PRN #12 tablet 08/02/19 Unknown Rx Hyoscyamine Subl [Levsin Sl 0.125 0.125 mg SL Q6HR PRN #20 tab 08/04/19 Unknown Rx TAB] Ondansetron [Zofran ODT TAB] 8 mg PO Q12HR #14 tab.rapdis 08/04/19 Unknown Rx ED Physical Exam - General Limitations: No Limitations General appearance: alert, in no apparent distress - Head Head exam: Present: atraumatic, normocephalic - Eye Eye exam: Present: normal appearance, PERRL, EOMI Pupils: Present: normal accommodation - ENT ENT exam: Present: normal exam, mucous membranes moist, TM's normal bilaterally - Neck Neck exam: Present: normal inspection, full ROM - Respiratory Respiratory exam: Present: normal lung sounds bilaterally. Absent: respiratory distress, wheezes, rales, chest wall tenderness, accessory muscle use - Cardiovascular Cardiovascular Exam: Present: regular rate, normal rhythm. Absent: systolic murmur, diastolic murmur, rubs, gallop - GI/Abdominal GI/Abdominal exam: Present: soft, normal bowel sounds, other (No [place] sign, no Maldonado Ken's, no Rovsing, no tenderness at McBurney's, no Galvez). Absent: gua rding, rebound, hyperactive bowel sounds, hypoactive bowel sounds, organomegaly - Rectal Rectal exam: Present: deferred - Extremities Exam Extremities exam: Present: normal inspection - Back Exam Back exam: Present: normal inspection - Neurological Exam Neurological exam: Present: alert, oriented X3 - Psychiatric Psychiatric exam: Present: normal affect, normal mood - Skin Skin exam: Present: warm, dry, intact, normal color. Absent: rash ED Course Vital Signs 08/04/19 08/04/19 08/04/19 19:27 19:31 20:27 Temperature 98.6 F 98.4 F Pulse Rate 61 60 64 Respiratory 18 18 16 Rate Blood Pressure 163/110 163/110 Blood Pressure 146/82 [Right] O2 Sat by Pulse 100 100 100 Oximetry ED Medical Decision Making - Lab Data Result diagrams: 08/04/19 19:31 08/04/19 19:31 Critical care attestation.: If time is entered above; I have spent that time in minutes in the direct care of this critically ill patient, excluding procedure time. ED Disposition Clinical Impression: Nausea & vomiting Disposition: DC-01 TO HOME OR SELFCARE Is pt being admited?: No Does the pt Need Aspirin: No Condition: Stable Instructions: Gastritis (ED), Gastroenteritis (ED), Acute Nausea and Vomiting (ED) Prescriptions: Hyoscyamine Subl [Levsin Sl 0.125 TAB] 0.125 mg SL Q6HR PRN #20 tab PRN Reason: abdominal pain Ondansetron [Zofran ODT TAB] 8 mg PO Q12HR #14 tab.rapdis Referrals: [facility] [Provider Group] - 3-5 Days Forms: Work/School Release Form(ED)
--- NOTE | 2019-08-04 21:09 | Cat Scan Report ---
CT ABDOMEN AND PELVIS WITHOUT IV CONTRAST INDICATION: flank and right pelvic pain. COMPARISON: None available. TECHNIQUE: All CT scans at this facility use dose modulation, automated exposure control, iterative reconstructi on or weight based dosing, when appropriate, to reduce radiation dose to as low as reasonably achieva ble. FINDINGS: Lung Bases: No significant abnormality. Skeletal System: No acute abnormality. ABDOMEN: Liver: No significant abnormality. Gallbladder: Contracted. Bile Ducts: No significant abnormality. Pancreas: No significant abnormality. Spleen: No significant abnormality. Adrenals: No significant abnormality. Right Kidney: No significant abnormality. Left Kidney: No significant abnormality. Upper GI tract: No significant abnormality. Lymph Nodes: No significant adenopathy. Aorta: No significant abnormality. Additional Findings: No significant abnormality. PELVIS: Colon: No acute abnormality. Urinary Bladder and Distal Ureters: No significant abnormality. Appendix: No significant abnormality. Lymph Nodes: No significant adenopathy. Additional Findings: None. IMPRESSION: 1. Within the limitations of non contrast technique, no acute process in the abdomen or pelvis. Signer Name: Rufino Hoffman MD Signed: 08/04/2019 9:05 PM Workstation Name: [id number]
[2019-08-04 21:22] LABS: Bacteria,Urine 1+ /HPF (Negative); Bilirubin,Urine NEG (Negative); Blood,Urine NEG (Negative); Color,Urine Yellow (Yellow); Protein,Urine <15 mg/dL mg/dL (Negative)
== END 2019-08-04 22:38 | disposition home or self-care (01) ==
LOC: ED 18:56
DX: R11.2 Nausea with vomiting, unspecified (principal); R10.9 Unspecified abdominal pain; I10 Essential (primary) hypertension; J45.909 Unspecified asthma, uncomplicated; M10.9 Gout, unspecified; Z79.899 Other long term (current) drug therapy
CPT/HCPCS: 36415; 74176; 80053; 81001; 83690; 85025; 87086; Q0162

== ENCOUNTER 2019-08-05 08:09 | Emergency (ER) | payer SELFPAY ==
[2019-08-05 08:21] VITALS: BP 164/105
--- NOTE | 2019-08-05 08:50 | Emergency Department Report ---
ED Extremity Problem HPI - General Chief complaint: Extremity Problem,Nontraumatic Stated complaint: RT TOE PAIN Time Seen by Provider: 08/05/19 08:46 Source: patient Mode of arrival: Ambulatory Limitations: No Limitations - History of Present Illness Initial comments: Complains of pain to the right great toe is been ongoing for a number of weeks. Has been seen multiple times for the same and treated for gout. States he has not followed up with anybody. No new complaints today states that just still hurts. No trauma. No modifying factors. No systemic complaints. Associated Symptoms: denies other symptoms - Related Data Previous Rx's Medication Instructions Recorded Last Taken Type Ibuprofen 800 mg PO Q6HR PRN #15 tablet 08/03/18 Unknown Rx Ibuprofen [Motrin] 600 mg PO Q8H PRN #15 tablet 11/29/18 Unknown Rx Sulfamethoxazole/Trimethoprim 1 each PO BID 10 Days #20 tablet 11/29/18 Unknown Rx [Bactrim DS TAB] Hydrocortisone [Anucort-HC SUPPOS] 25 mg RC BID #12 supp.rect 01/13/19 Unknown Rx Erythromycin [Erythromycin Ophth 1 applic OS QID 7 Days #1 tube 03/05/19 Unknown Rx Oint] Ibuprofen [Motrin 800 MG tab] 800 mg PO Q8HR PRN #21 tablet 05/08/19 Unknown Rx methOCARBAMOL [Robaxin TAB] 1,500 mg PO Q8H PRN #18 tablet 05/08/19 Unknown Rx Ibuprofen [Motrin 800 MG tab] 800 mg PO Q8HR 7 Days #21 tablet 05/13/19 Unknown Rx Ketorolac [Toradol] 10 mg PO Q6H PRN #20 tablet 07/29/19 Unknown Rx Colchicine [Gloperba] 0.6 mg PO Q8H PRN #15 solution 08/02/19 Unknown Rx Indomethacin 50 mg PO Q8H PRN #45 capsule 08/02/19 Unknown Rx predniSONE [Deltasone] 60 mg PO QDAY #15 tab 08/02/19 Unknown Rx traMADoL [Ultram] 50 mg PO Q6HR PRN #12 tablet 08/02/19 Unknown Rx Hyoscyamine Subl [Levsin Sl 0.125 0.125 mg SL Q6HR PRN #20 tab 08/04/19 Unknown Rx TAB] Ondansetron [Zofran ODT TAB] 8 mg PO Q12HR #14 tab.rapdis 08/04/19 Unknown Rx dexAMETHasone [Dexamethasone] 4 mg PO BID #10 tablet 08/05/19 Unknown Rx Allergies Allergy/AdvReac Type Severity Reaction Status Date / Time No Known Allergies Allergy Verified 07/29/19 00:23 ED Review of Systems ROS: Stated complaint: RT TOE PAIN Other details as noted in HPI Comment: All other systems reviewed and negative Musculoskeletal: as per HPI ED Past Medical Hx - Past Medical History Hx Hypertension: Yes Hx Asthma: Yes Additional medical history: GOUT, BUNION - Social History Smoking Status: Never Smoker Substance Use Type: None - Medications Home Medications: Home Medications Medication Instructions Recorded Confirmed Last Taken Type Ibuprofen 800 mg PO Q6HR PRN #15 tablet 08/03/18 Unknown Rx Ibuprofen [Motrin] 600 mg PO Q8H PRN #15 tablet 11/29/18 Unknown Rx Sulfamethoxazole/Trimethoprim 1 each PO BID 10 Days #20 tablet 11/29/18 Unknown Rx [Bactrim DS TAB] Hydrocortisone [Anucort-HC SUPPOS] 25 mg RC BID #12 supp.rect 01/13/19 Unknown Rx Erythromycin [Erythromycin Ophth 1 applic OS QID 7 Days #1 tube 03/05/19 Unknown Rx Oint] Ibuprofen [Motrin 800 MG tab] 800 mg PO Q8HR PRN #21 tablet 05/08/19 Unknown Rx methOCARBAMOL [Robaxin TAB] 1,500 mg PO Q8H PRN #18 tablet 05/08/19 Unknown Rx Ibuprofen [Motrin 800 MG tab] 800 mg PO Q8HR 7 Days #21 tablet 05/13/19 Unknown Rx Ketorolac [Toradol] 10 mg PO Q6H PRN #20 tablet 07/29/19 Unknown Rx Colchicine [Gloperba] 0.6 mg PO Q8H PRN #15 solution 08/02/19 Unknown Rx Indomethacin 50 mg PO Q8H PRN #45 capsule 08/02/19 Unknown Rx predniSONE [Deltasone] 60 mg PO QDAY #15 tab 08/02/19 Unknown Rx traMADoL [Ultram] 50 mg PO Q6HR PRN #12 tablet 08/02/19 Unknown Rx Hyoscyamine Subl [Levsin Sl 0.125 0.125 mg SL Q6HR PRN #20 tab 08/04/19 Unknown Rx TAB] Ondansetron [Zofran ODT TAB] 8 mg PO Q12HR #14 tab.rapdis 08/04/19 Unknown Rx dexAMETHasone [Dexamethasone] 4 mg PO BID #10 tablet 08/05/19 Unknown Rx ED Physical Exam - General Limitations: No Limitations General appearance: alert, in no apparent distress - Head Head exam: Present: atraumatic, normocephalic - Extremities Exam Extremities exam: Present: other (Pain and tenderness to the right first MTP joint, no erythema, no significant foot swelling, normal pulse, no findings to suggest infection.) ED Course Vital Signs 08/05/19 08:15 Temperature 98.1 F Pulse Rate 60 Respiratory 18 Rate Blood Pressure 164/105 O2 Sat by Pulse 100 Oximetry ED Medical Decision Making - Medical Decision Making Patient with ongoing toe pain. Exam suggest gout. No trauma to necessitate imaging. Has been seen multiple times for the same. Advised that he needs to see a primary care doctor for management of his chronic complaints. - Differential Diagnosis Chronic pain, gout, asymptomatic hypertension Critical care attestation.: If time is entered above; I have spent that time in minutes in the direct care of this critically ill patient, excluding procedure time. ED Disposition Clinical Impression: Pain, foot, right, chronic Disposition: DC-01 TO HOME OR SELFCARE Is pt being admited?: No Condition: Good Instructions: Arthralgia (ED) Prescriptions: dexAMETHasone [Dexamethasone] 4 mg PO BID #10 tablet Referrals: YESSI VIEIRA MD [Staff Physician] - 3-5 Days Time of Disposition: 08:50
== END 2019-08-05 08:56 | disposition home or self-care (01) ==
LOC: ED 08:09
DX: M79.671 Pain in right foot (principal); G89.29 Other chronic pain; I10 Essential (primary) hypertension; J45.909 Unspecified asthma, uncomplicated; M10.9 Gout, unspecified; Z79.899 Other long term (current) drug therapy
CPT/HCPCS: 99282

== ENCOUNTER 2019-08-08 20:46 | Emergency (ER) | payer SELFPAY ==
[2019-08-08] MEDS ORDERED: HYDROGEN PEROXIDE 118 ML SOLUTION ONE (23:17)
[2019-08-08] MEDS ORDERED: HYDROGEN PEROXIDE 118 ML SOLUTION TP ONE (23:18)
[2019-08-08] MEDS ORDERED: HYDROcodone/ACETAMINOPHEN 10-325MG TAB PO ONE (23:18)
[2019-08-08] MEDS ORDERED: HYDROcodone/ACETAMINOPHEN 10-325MG TAB ONE (23:21)
[2019-08-08] MEDS ORDERED: LIDOCAINE-MPF (1%) 10 MG/1 ML VIAL 5 ML INFILTRATI ONE (23:45)
--- NOTE | 2019-08-08 23:57 | Emergency Department Report ---
Abscess Boil HPI - HPI Chief Complaint: Extremity Injury, Upper Stated Complaint: FINGER SWELLING Time Seen by Provider: 08/08/19 23:21 Duration: 4 Days Location: Upper Extremity Severity: Moderate History: Yes Fever, Yes Previous History, No Purulent Drainage, No Foreign Body, No Insect Bite HPI: 33-year-old male presents emerged department complaining of pain swelling continued to the left finger after being seen evaluate emerge department 2 to 3 days ago. He states that he was placed on antibiotic and the wound was partially punctured while in the emergency department however symptoms continue to worsen. Reports no numbness or tingling no fever chills or sweats. Home Medications: Previous Rx's Medication Instructions Recorded Last Taken Type Ibuprofen 800 mg PO Q6HR PRN #15 tablet 08/03/18 Unknown Rx Ibuprofen [Motrin] 600 mg PO Q8H PRN #15 tablet 11/29/18 Unknown Rx Sulfamethoxazole/Trimethoprim 1 each PO BID 10 Days #20 tablet 11/29/18 Unknown Rx [Bactrim DS TAB] Hydrocortisone [Anucort-HC SUPPOS] 25 mg RC BID #12 supp.rect 01/13/19 Unknown Rx Erythromycin [Erythromycin Ophth 1 applic OS QID 7 Days #1 tube 03/05/19 Unknown Rx Oint] Ibuprofen [Motrin 800 MG tab] 800 mg PO Q8HR PRN #21 tablet 05/08/19 Unknown Rx methOCARBAMOL [Robaxin TAB] 1,500 mg PO Q8H PRN #18 tablet 05/08/19 Unknown Rx Ibuprofen [Motrin 800 MG tab] 800 mg PO Q8HR 7 Days #21 tablet 05/13/19 Unknown Rx Ketorolac [Toradol] 10 mg PO Q6H PRN #20 tablet 07/29/19 Unknown Rx Colchicine [Gloperba] 0.6 mg PO Q8H PRN #15 solution 08/02/19 Unknown Rx Indomethacin 50 mg PO Q8H PRN #45 capsule 08/02/19 Unknown Rx predniSONE [Deltasone] 60 mg PO QDAY #15 tab 08/02/19 Unknown Rx traMADoL [Ultram] 50 mg PO Q6HR PRN #12 tablet 08/02/19 Unknown Rx Hyoscyamine Subl [Levsin Sl 0.125 0.125 mg SL Q6HR PRN #20 tab 08/04/19 Unknown Rx TAB] Ondansetron [Zofran ODT TAB] 8 mg PO Q12HR #14 tab.rapdis 08/04/19 Unknown Rx dexAMETHasone [Dexamethasone] 4 mg PO BID #10 tablet 08/05/19 Unknown Rx Acetaminophen/Codeine [Tylenol 1 tab PO Q6H PRN #12 tab 08/07/19 Unknown Rx /Codeine # 3 tab] Sulfamethoxazole/Trimethoprim 1 each PO BID #14 tablet 08/07/19 Unknown Rx [Bactrim DS TAB] Chlorhexidine Gluconate [Hibiclens] 10 ml TP BID #240 liquid 08/08/19 Unknown Rx cephALEXin [Keflex] 500 mg PO Q6HR #40 capsule 08/08/19 Unknown Rx Allergies/Adverse Reactions: Allergies Allergy/AdvReac Type Severity Reaction Status Date / Time No Known Allergies Allergy Verified 07/29/19 00:23 ED Review of Systems ROS: Stated complaint: FINGER SWELLING Other details as noted in HPI Comment: All other systems reviewed and negative ED Past Medical Hx - Past Medical History Previous Medical History?: Yes Hx Hypertension: Yes Hx Asthma: Yes Additional medical history: GOUT, BUNION - Surgical History Past Surgical History?: No - Social History Smoking Status: Current Every Day Smoker Substance Use Type: None - Medications Home Medications: Home Medications Medication Instructions Recorded Confirmed Last Taken Type Ibuprofen 800 mg PO Q6HR PRN #15 tablet 08/03/18 Unknown Rx Ibuprofen [Motrin] 600 mg PO Q8H PRN #15 tablet 11/29/18 Unknown Rx Sulfamethoxazole/Trimethoprim 1 each PO BID 10 Days #20 tablet 11/29/18 Unknown Rx [Bactrim DS TAB] Hydrocortisone [Anucort-HC SUPPOS] 25 mg RC BID #12 supp.rect 01/13/19 Unknown Rx Erythromycin [Erythromycin Ophth 1 applic OS QID 7 Days #1 tube 03/05/19 Unknown Rx Oint] Ibuprofen [Motrin 800 MG tab] 800 mg PO Q8HR PRN #21 tablet 05/08/19 Unknown Rx methOCARBAMOL [Robaxin TAB] 1,500 mg PO Q8H PRN #18 tablet 05/08/19 Unknown Rx Ibuprofen [Motrin 800 MG tab] 800 mg PO Q8HR 7 Days #21 tablet 05/13/19 Unknown Rx Ketorolac [Toradol] 10 mg PO Q6H PRN #20 tablet 07/29/19 Unknown Rx Colchicine [Gloperba] 0.6 mg PO Q8H PRN #15 solution 08/02/19 Unknown Rx Indomethacin 50 mg PO Q8H PRN #45 capsule 08/02/19 Unknown Rx predniSONE [Deltasone] 60 mg PO QDAY #15 tab 08/02/19 Unknown Rx traMADoL [Ultram] 50 mg PO Q6HR PRN #12 tablet 08/02/19 Unknown Rx Hyoscyamine Subl [Levsin Sl 0.125 0.125 mg SL Q6HR PRN #20 tab 08/04/19 Unknown Rx TAB] Ondansetron [Zofran ODT TAB] 8 mg PO Q12HR #14 tab.rapdis 08/04/19 Unknown Rx dexAMETHasone [Dexamethasone] 4 mg PO BID #10 tablet 08/05/19 Unknown Rx Acetaminophen/Codeine [Tylenol 1 tab PO Q6H PRN #12 tab 08/07/19 Unknown Rx /Codeine # 3 tab] Sulfamethoxazole/Trimethoprim 1 each PO BID #14 tablet 08/07/19 Unknown Rx [Bactrim DS TAB] Chlorhexidine Gluconate [Hibiclens] 10 ml TP BID #240 liquid 08/08/19 Unknown Rx cephALEXin [Keflex] 500 mg PO Q6HR #40 capsule 08/08/19 Unknown Rx ED Abscess Boil Physical Exam - Exam General: Vital signs noted. No distress. Alert and acting appropriately. Front/Back of Body, Lg (Color): 1 - Abscess Size: 2 cm Exam: Yes Tenderness, Yes Surrounding Cellulites/Erythema, Yes Normal Neurologic Exam, Yes Normal Circulation, No Fluctuance, No Lymphangitis, No Crepitation, No Heart Murmur I & D Note - I & D Note I & D Note: Area prepped and draped in sterile fashion anesthesia achieved with 2% lidocaine with no epinephrine. #11 blade was used to excise the wound and c opious green thick discharge. The wound was then irrigated with saline and peroxide ED Course Vital Signs 08/08/19 21:04 Temperature 98.3 F Pulse Rate 75 Respiratory 18 Rate Blood Pressure 150/97 O2 Sat by Pulse 100 Oximetry Critical care attestation.: If time is entered above; I have spent that time in minutes in the direct care of this critically ill patient, excluding procedure time. ED Disposition Clinical Impression: Abscess of finger Disposition: DC-01 TO HOME OR SELFCARE Is pt being admited?: No Does the pt Need Aspirin: No Condition: Stable Instructions: Abscess Incision and Drainage (ED), Abscess (ED) Prescriptions: Chlorhexidine Gluconate [Hibiclens] 10 ml TP BID #240 liquid cephALEXin [Keflex] 500 mg PO Q6HR #40 capsule Referrals: PACO LAW MD [Primary Care Provider] - 2-3 Days (Please follow-up with them for a repeat wound evaluation in 2 to 3 days)
[2019-08-09 00:38] VITALS: BP 148/73
== END 2019-08-09 00:39 | disposition home or self-care (01) ==
LOC: ED 20:46
DX: L02.512 Cutaneous abscess of left hand (principal); I10 Essential (primary) hypertension; J45.909 Unspecified asthma, uncomplicated; M10.9 Gout, unspecified; F17.200 Nicotine dependence, unspecified, uncomplicated; Z79.899 Other long term (current) drug therapy
CPT/HCPCS: 10060; 96372; 99282; J0696

== ENCOUNTER 2019-08-12 07:38 | Emergency (ER) | payer SELFPAY ==
--- NOTE | 2019-08-12 08:32 | Emergency Department Report ---
Vomiting/Diarrhea - HPI Chief Complaint: Nausea/Vomiting/Diarrhea Stated Complaint: N/V Time Seen by Provider: 08/12/19 08:16 Duration: 1 Day (yesterday. None today) Severity: mild Nausea/Vomiting Severity: Mild Diarrhea Severity: None Pain Location: Epigastric Pain Severity: Mild (4/10) Symptoms: Yes Able to Tolerate Fluids, No Watery Diarrhea, No Bloody diarrhea, No Fever, No Recent Unusual Foods, No Recent Untreated Water, No Recent use of Antibiotics, No Family w/ Similar Symptoms, No Contacts w/ Similar Symptoms, No Rash, No Hematuria, No Recent URI Symptoms Other History: Patient mary c/o nausea, vomitting yesterday and had 1 episode of blood when vomitted yesterday. Denies any nausea or vomitting. Reports abdominal cramping on/off. Denies fever. chills, cough. cold, sob or chest pain. Denies urinary symptoms. Last bowel movement was yesterday. ED Review of Systems ROS: Stated complaint: N/V Other details as noted in HPI Constitutional: denies: chills, fever Eyes: denies: eye discharge ENT: denies: ear pain, throat pain, dental pain, congestion Respiratory: denies: cough, shortness of breath, SOB with exertion, wheezing Cardiovascular: denies: chest pain, palpitations, edema, syncope Gastrointestinal: abdominal pain, nausea, vomiting, hematochezia (Small amount x1 episode yesterday). denies: diarrhea, constipation, hematemesis, melena Genitourinary: denies: dysuria, frequency, hematuria Musculoskeletal: denies: back pain, arthralgia Skin: denies: rash Neurological: denies: headache, weakness, numbness ED Past Medical Hx - Past Medical History Previous Medical History?: Yes Hx Hypertension: Yes Hx Asthma: Yes Additional medical history: GOUT, BUNION - Surgical History Past Surgical History?: Yes Additional Surgical History: right ring finger - Family History Family history: hypertension - Social History Smoking Status: Current Every Day Smoker Substance Use Type: None - Medications Home Medications: Home Medications Medication Instructions Recorded Confirmed Last Taken Type Ibuprofen 800 mg PO Q6HR PRN #15 tablet 08/03/18 Unknown Rx Ibuprofen [Motrin] 600 mg PO Q8H PRN #15 tablet 11/29/18 Unknown Rx Sulfamethoxazole/Trimethoprim 1 each PO BID 10 Days #20 tablet 11/29/18 Unknown Rx [Bactrim DS TAB] Hydrocortisone [Anucort-HC SUPPOS] 25 mg RC BID #12 supp.rect 01/13/19 Unknown Rx Erythromycin [Erythromycin Ophth 1 applic OS QID 7 Days #1 tube 03/05/19 Unk nown Rx Oint] Ibuprofen [Motrin 800 MG tab] 800 mg PO Q8HR PRN #21 tablet 05/08/19 Unknown Rx methOCARBAMOL [Robaxin TAB] 1,500 mg PO Q8H PRN #18 tablet 05/08/19 Unknown Rx Ibuprofen [Motrin 800 MG tab] 800 mg PO Q8HR 7 Days #21 tablet 05/13/19 Unknown Rx Ketorolac [Toradol] 10 mg PO Q6H PRN #20 tablet 07/29/19 Unknown Rx Colchicine [Gloperba] 0.6 mg PO Q8H PRN #15 solution 08/02/19 Unknown Rx Indomethacin 50 mg PO Q8H PRN #45 capsule 08/02/19 Unknown Rx predniSONE [Deltasone] 60 mg PO QDAY #15 tab 08/02/19 Unknown Rx traMADoL [Ultram] 50 mg PO Q6HR PRN #12 tablet 08/02/19 Unknown Rx Hyoscyamine Subl [Levsin Sl 0.125 0.125 mg SL Q6HR PRN #20 tab 08/04/19 Unknown Rx TAB] Ondansetron [Zofran ODT TAB] 8 mg PO Q12HR #14 tab.rapdis 08/04/19 Unknown Rx dexAMETHasone [Dexamethasone] 4 mg PO BID #10 tablet 08/05/19 Unknown Rx Acetaminophen/Codeine [Tylenol 1 tab PO Q6H PRN #12 tab 08/07/19 Unknown Rx /Codeine # 3 tab] Sulfamethoxazole/Trimethoprim 1 each PO BID #14 tablet 08/07/19 Unknown Rx [Bactrim DS TAB] Chlorhexidine Gluconate [Hibiclens] 10 ml TP BID #240 liquid 08/08/19 Unknown Rx cephALEXin [Keflex] 500 mg PO Q6HR #40 capsule 08/08/19 Unknown Rx Dicyclomine [Bentyl] 20 mg PO Q8H 3 Days #9 tablet 08/12/19 Unknown Rx Famotidine [Pepcid] 20 mg PO BID 5 Days #10 tablet 08/12/19 Unknown Rx Promethazine [Phenergan TAB] 25 mg PO Q6HR PRN #12 tab 08/12/19 Unknown Rx hydroCHLOROthiazide [HCTZ] 25 mg PO QDAY 30 Days #30 tablet 08/12/19 Unknown Rx Vomiting Diarrhea Exam - Exam General: Vital signs noted. No distress. Alert and acting appropriately. This is a 33-year-old male well-nourished well-developed in no acute distress. HEENT: No Pharyngeal Erythema, No Pharyngeal Exudates, No Moist Mucous Membranes, No Rhinorrhea, No Conjuctival Injection, No Frontal Tenderness, No Maxillary Tenderness Neck: No Adenopathy (Supple), No Rigidity Lungs: Yes Clear Lung Sounds, Yes Good Air Exchange, No Wheezes, No Stridor, No Cough, No Nasal Flaring, No Retractions, No Use of Accessory Muscles Heart exam: Regular: Yes (Blood pressure elevated), Murmur: No, Tachycardia: No Abdomen: Tenderness: No (Normal bowel sounds in all quadrants), Peritoneal Signs: No, Distention: No, Hyperactive Bowel sounds: No Skin exam: Rash: No, Edema: No, Normal turgor: Yes (Clean dry and intact) Neurologic: Alert and oriented, no deficits. Musculoskeletal: Unremarkable. ED Course Vital Signs 08/12/19 07:45 Temperature 98.4 F Pulse Rate 69 Respiratory 20 Rate Blood Pressure 159/111 [Left] O2 Sat by Pulse 100 Oximetry Vital Signs 08/12/19 08/12/19 08/12/19 07:45 10:02 10:03 Temperature 98.4 F Pulse Rate 69 Respiratory 20 18 Rate Blood Pressure 159/111 157/98 [Left] O2 Sat by Pulse 100 Oximetry - Reevaluation(s) Reevaluation #1: 08/12/19 10:19 Patient is stable in no acute distress. Patient received GI cocktail to include Maalox, lidocaine and Bentyl with positive relief of abdominal pain. No nausea vomiting ED Medical Decision Making - Lab Data Result diagrams: 08/12/19 08:59 08/12/19 08:59 Lab Results 08/12/19 08/12/19 Range/Units 08:59 08:59 WBC 5.9 (4.5-11.0) K/mm3 RBC 4.81 (3.65-5.03) M/mm3 Hgb 13.8 (11.8-15.2) gm/dl Hct 41.8 (35.5-45.6) % MCV 87 (84-94) fl MCH 29 (28-32) pg MCHC 33 (32-34) % RDW 15.7 H (13.2-15.2) % Plt Count 234 (140-440) K/mm3 Lymph % (Auto) 26.7 (13.4-35.0) % [place] % (Auto) 10.9 H (0.0-7.3) % Eos % (Auto) 1.2 (0.0-4.3) % Baso % (Auto) 0.7 (0.0-1.8) % Lymph # 1.6 (1.2-5.4) K/mm3 [place] # 0.6 (0.0-0.8) K/mm3 Eos # 0.1 (0.0-0.4) K/mm3 Baso # 0.0 (0.0-0.1) K/mm3 Seg Neutrophils % 60.5 (40.0-70.0) % Seg Neutrophils # 3.6 (1.8-7.7) K/mm3 Sodium 140 (137-145) mmol/L Potassium 4.1 (3.6-5.0) mmol/L Chloride 103.5 (98-107) mmol/L Carbon Dioxide 24 (22-30) mmol/L Anion Gap 17 mmol/L BUN 10 (9-20) mg/dL Creatinine 0.7 L (0.8-1.5) mg/dL Estimated GFR > 60 ml/min BUN/Creatinine Ratio 14 % Glucose 101 H (75-100) mg/dL Calcium 9.5 (8.4-10.2) mg/dL Total Bilirubin 0.40 (0.1-1.2) mg/dL AST 15 (5-40) units/L ALT 11 (7-56) units/L Alkaline Phosphatase 71 (35-129) units/L Total Protein 7.2 (6.3-8.2) g/dL Albumin 4.1 (3.9-5) g/dL Albumin/Globulin Ratio 1.3 % - Radiology Data Radiology results: report reviewed 2 view chest x-ray dictated by radiologist and report reviewed by myself. No acute findings Findings [facility] [address] [place] [address] XRay Report Signed Patient: MAME HILLIARD JR MR#: [id number] : 1985 Acct:[id number] Age/Sex: 33 / M ADM Date: 08/12/19 Loc: ED Attending Dr: Ordering Physician: GEOFFREY GILL Date of Service: 08/12/19 Procedure(s): XR chest routine 2V Accession Number(s): [id number] cc: GEOFFREY GILL Fluoro Time In Minutes: CHEST 2 VIEWS INDICATION: ROLANDO, cough. COMPARISON: 11/29/2018 FINDINGS: Support devices: None. Heart: Within normal limits. Lungs/pleura: No acute air space or interstitial disease. No pneumothorax. Additional findings: Mild dextrocurvature of the thoracolumbar spine is noted. IMPRESSION: Scoliosis, otherwise, unremarkable chest films. Signer Name: Pacheco Amin Jr, MD Signed: 08/13/2019 10:07 AM Workstation Name: [email or web address] Transcribed By: TTR Dictated By: PACHECO AMIN JR, MD Electronically Authenticated By: PACHECO AMIN JR, MD Signed Date/Time: 08/13/19 1007 - Medical Decision Making This is a 33-year-old male here complaining nausea and vomiting yesterday. He said he had one episode of some blood in his vomit but none since yesterday. Denies any upper respiratory symptoms. Patient had CBC and chemistry done which were stable. He received GI cocktail emergency room and reports he is feeling better. Tolerated 2 cups of tap water without any difficulties. Denies any nausea or vomiting or abdominal pain at present. Patient discharged home in stable condition with prescription for Bentyl, Phenergan and Pepcid for nausea and vomiting. Patient was previously taking hydrochlorothiazide which he said he ran out for elevated blood pressure. His blood pressure prior to discharge is 140/92 and will start back on his HCTZ. And to follow-up with primary care physician tomorrow or return to the emergency room if his symptoms worsen. He voiced understanding. - Differential Diagnosis Acute GI bleed, gastroenteritis ,dyspepsia, viral infection Critical care attestation.: If time is entered above; I have spent that time in minutes in the direct care of this critically ill patient, excluding procedure time. ED Disposition Clinical Impression: Nausea and vomiting in adult, Elevated blood pressure reading with diagnosis of hypertension Abdominal pain Qualifiers: Abdominal location: epigastric Qualified Code(s): R10.13 - Epigastric pain Disposition: DC- TO HOME OR SELFCARE Is pt being admited?: No Does the pt Need Aspirin: No Condition: Stable Instructions: Acute Nausea and Vomiting (ED), Abdominal Pain (ED), Hypertension (ED) Additional Instructions: Please follow-up with your primary care physician in 2 days. Take medication as prescribed If your symptoms worsens, return to the emergency room USHA Increase your fluid intake Avoid spicy and carbonated beverages Prescriptions: Dicyclomine [Bentyl] 20 mg PO Q8H 3 Days #9 tablet hydroCHLOROthiazide [HCTZ] 25 mg PO QDAY 30 Days #30 tablet Famotidine [Pepcid] 20 mg PO BID 5 Days #10 tablet Promethazine [Phenergan TAB] 25 mg PO Q6HR PRN #12 tab PRN Reason: Nausea Referrals: [facility] [Outside] - 08/14/19 [facility] [Outside] - 08/14/19
[2019-08-12] MEDS ORDERED: ALUM-MAG HYDROXIDE-SIMETHICONE 200-200-20MG/5ML ORAL LIQD 30 ML PO ONE (08:33)
[2019-08-12] MEDS ORDERED: LIDOCAINE VISCOUS 2% 15 ML ORAL LIQD PO ONE (08:33)
[2019-08-12] MEDS ORDERED: DICYCLOMINE 20 MG TAB PO ONE (08:33)
[2019-08-12 09:11] LABS: Basophils % (Auto) 0.7 % (0.0-1.8); Eosinophils # (Auto) 0.1 K/mm3 (0.0-0.4); Eosinophils % (Auto) 1.2 % (0.0-4.3); Hematocrit 41.8 % (35.5-45.6); Hemoglobin 13.8 gm/dl (11.8-15.2); Lymphocytes # (Auto) 1.6 K/mm3 (1.2-5.4); Lymphocytes % (Auto) 26.7 % (13.4-35.0); Mean Corpuscular HGB Conc 33 % (32-34); Mean Corpuscular Volume 87 fl (84-94); Monocytes # (Auto) 0.6 K/mm3 (0.0-0.8); Monocytes % (Auto) 10.9 % (0.0-7.3); Platelet Count 234 K/mm3 (140-440); Red Blood Count 4.81 M/mm3 (3.65-5.03); Red Cell Distribution Width 15.7 % (13.2-15.2)
[2019-08-12 09:26] LABS: Alanine Aminotransferase 11 units/L (7-56); Albumin 4.1 g/dL (3.9-5); BUN/Creatinine Ratio 14; Blood Urea Nitrogen 10 mg/dL (9-20); Calcium 9.5 mg/dL (8.4-10.2); Hemolysis Index 9
[2019-08-12 10:03] VITALS: BP 157/98
--- NOTE | 2019-08-13 10:12 | XRay Report ---
CHEST 2 VIEWS INDICATION: ROLANDO, cough. COMPARISON: 11/29/2018 FINDINGS: Support devices: None. Heart: Within normal limits. Lungs/pleura: No acute air space or interstitial disease. No pneumothorax. Additional findings: Mild dextrocurvature of the thoracolumbar spine is noted. IMPRESSION: Scoliosis, otherwise, unremarkable chest films. Signer Name: Pacheco Mi Jr, MD Signed: 08/13/2019 10:07 AM Workstation Name: [id number]
== END 2019-08-12 10:48 | disposition home or self-care (01) ==
LOC: ED 07:38
DX: R10.13 Epigastric pain (principal); R11.2 Nausea with vomiting, unspecified; I10 Essential (primary) hypertension; J45.909 Unspecified asthma, uncomplicated; F17.200 Nicotine dependence, unspecified, uncomplicated; M10.9 Gout, unspecified; Z79.899 Other long term (current) drug therapy
CPT/HCPCS: 36415; 71046; 80053; 85025; 99283

== ENCOUNTER 2019-08-12 22:43 | Emergency (ER) | payer SELFPAY ==
[2019-08-12 22:50] VITALS: BP 170/106
--- NOTE | 2019-08-12 23:03 | Emergency Department Report ---
Chief Complaint: Nausea/Vomiting/Diarrhea Stated Complaint: SORE THROAT, VOMITING BLOOD Time Seen by Provider: 08/12/19 22:56 - HPI History of Present Illness: Pt complains of blood streaked vomit on a return visit. he was seen earlier today for the same problem. - ROS Review of Systems: All systems reviewed and WNL - Exam Vital Signs: Vital Signs 08/12/19 22:44 Temperature 99.6 F Pulse Rate 80 Respiratory 18 Rate Blood Pressure 170/106 O2 Sat by Pulse 99 Oximetry Physical Exam: Lcigouw-snyw-ixesxmaai, non-toxic appearing and well-groomed HEENT-WNL Lungs-WNL Heart-WNL GI-WNL Neuro-WNL Psch-WNL MSE screening note: Focused history and physical exam performed. Due to findings the following was ordered: ED Medical Decision Making - Medical Decision Making Consulted with Dr. Grissom: Pt was informed to make diet changes, take medications prescribed earlier and to f/u with GI. If symptoms become severe, return to ED. ED Disposition for MSE Clinical Impression: Nausea and vomiting in adult Disposition: MED SCREENING EXAM-LEFT Is pt being admited?: No Does the pt Need Aspirin: No Condition: Stable Instructions: Diet for Ulcers and Gastritis (ED), Gastroesophageal Reflux Disease (ED) Additional Instructions: Pt was informed to make diet changes, take medications prescribed earlier and to f/u with GI. If symptoms become severe, return to ED. Referrals: MALLORY VANEGAS MD [Staff Physician] - 3-5 Days Time of Disposition: 23:05
== END 2019-08-12 23:31 | disposition left against medical advice (07) ==
LOC: ED 22:43
DX: R11.2 Nausea with vomiting, unspecified (principal)
CPT/HCPCS: 99282

== ENCOUNTER 2019-08-14 22:53 | Emergency (ER) | payer SELFPAY ==
[2019-08-14] MEDS ORDERED: ASPIRIN 325 MG TAB PO ONE (23:13)
--- NOTE | 2019-08-14 23:55 | XRay Report ---
CHEST 1 VIEW 08/14/2019 11:43 PM INDICATION / CLINICAL INFORMATION: Chest Pain. COMPARISON: 08/12/19 FINDINGS: SUPPORT DEVICES: None. HEART / MEDIASTINUM: No significant abnormality. LUNGS / PLEURA: No significant pulmonary or pleural abnormality. No pneumothorax. ADDITIONAL FINDINGS: Minimal lumbar scoliosis, unchanged. IMPRESSION: 1. No acute findings. No significant change. Signer Name: Rai Benítez MD Signed: 08/14/2019 11:51 PM Workstation Name: [id number]
--- NOTE | 2019-08-15 00:40 | Emergency Department Report ---
ED Chest Pain HPI - General Chief Complaint: Chest Pain Stated Complaint: CP Time Seen by Provider: 08/15/19 00:36 Source: patient Mode of arrival: Ambulatory Limitations: No Limitations - History of Present Illness Initial Comments: Patient is a 33-year-old male that presents emergency room with complaints of left-sided chest pain that started 24 hours ago. Patient states it is in his left chest. Patient states chest pain is nonradiating. States his chest pain is a 10 out of 10. Patient states that his pain is worse with exertion and better with rest. Patient also states that his pain is worse with movement. Patient states he stopped vomiting blood. Patient states he has been seen 2 times in the past 4 days for vomiting blood was discharged this time. Patient states the vomiting of blood has resolved. Patient states that his epigastric pain is improving. Patient states he was having lip numbness but that has resolved. Patient also complains of being anxious and nervous. Patient states he chest pain is making him nervous. MD Complaint: chest pain -: Sudden Onset: during rest Pain Location: substernal, left chest Pain Radiation: none Severity: severe Severity scale (0 -10): 10 Quality: sharp Consistency: constant Worsens With: exertion, palpation, movement re: denies: nausea, vomting, diaphoresis, dyspnea, sense of impending doom Other Symptoms: denies: cough, fever, syncope, rash, acid taste in mouth, leg swelling, palpitations, burping Treatments Prior to Arrival: none Aspirin use within the Past 7 Days: (0) No - Related Data On Oral Contraceptives: No Previous Rx's Medication Instructions Recorded Last Taken Type Ibuprofen 800 mg PO Q6HR PRN #15 tablet 08/03/18 Unknown Rx Ibuprofen [Motrin] 600 mg PO Q8H PRN #15 tablet 11/29/18 Unknown Rx Sulfamethoxazole/Trimethoprim 1 each PO BID 10 Days #20 tablet 11/29/18 Unknown Rx [Bactrim DS TAB] Hydrocortisone [Anucort-HC SUPPOS] 25 mg RC BID #12 supp.rect 01/13/19 Unknown Rx Erythromycin [Erythromycin Ophth 1 applic OS QID 7 Days #1 tube 03/05/19 Unknown Rx Oint] Ibuprofen [Motrin 800 MG tab] 800 mg PO Q8HR PRN #21 tablet 05/08/19 Unknown Rx methOCARBAMOL [Robaxin TAB] 1,500 mg PO Q8H PRN #18 tablet 05/08/19 Unknown Rx Ibuprofen [Motrin 800 MG tab] 800 mg PO Q8HR 7 Days #21 tablet 05/13/19 Unknown Rx Ketorolac [Toradol] 10 mg PO Q6H PRN #20 tablet 07/29/19 Unknown Rx Colchicine [Gloperba] 0.6 mg PO Q8H PRN #15 solution 08/02/19 Unknown Rx Indomethacin 50 mg PO Q8H PRN #45 capsule 08/02/19 Unknown Rx predniSONE [Deltasone] 60 mg PO QDAY #15 tab 08/02/19 Unknown Rx traMADoL [Ultram] 50 mg PO Q6HR PRN #12 tablet 08/02/19 Unknown Rx Hyoscyamine Subl [Levsin Sl 0.125 0.125 mg SL Q6HR PRN #20 tab 08/04/19 Unknown Rx TAB] Ondansetron [Zofran ODT TAB] 8 mg PO Q12HR #14 tab.rapdis 08/04/19 Unknown Rx dexAMETHasone [Dexamethasone] 4 mg PO BID #10 tablet 08/05/19 Unknown Rx Acetaminophen/Codeine [Tylenol 1 tab PO Q6H PRN #12 tab 08/07/19 Unknown Rx /Codeine # 3 tab] Sulfamethoxazole/Trimethoprim 1 each PO BID #14 tablet 08/07/19 Unknown Rx [Bactrim DS TAB] Chlorhexidine Gluconate [Hibiclens] 10 ml TP BID #240 liquid 08/08/19 Unknown Rx cephALEXin [Keflex] 500 mg PO Q6HR #40 capsule 08/08/19 Unknown Rx Dicyclomine [Bentyl] 20 mg PO Q8H 3 Days #9 tablet 08/12/19 Unknown Rx Famotidine [Pepcid] 20 mg PO BID 5 Days #10 tablet 08/12/19 Unknown Rx Promethazine [Phenergan TAB] 25 mg PO Q6HR PRN #12 tab 08/12/19 Unknown Rx hydroCHLOROthiazide [HCTZ] 25 mg PO QDAY 30 Days #30 tablet 08/12/19 Unknown Rx methylPREDNISolone [Medrol 4MG 4 mg PO DAILY 6 Days #1 pack 08/15/19 Unknown Rx DOSEPAK (21 tabs)] Allergies Allergy/AdvReac Type Severity Reaction Status Date / Time No Known Allergies Allergy Verified 07/29/19 00:23 Heart Score - HEART Score History: Slightly suspicious EKG: Normal Age: < 45 Risk factors: No known risk factors Troponin: < normal limit HEART Score: 0 ED Review of Systems ROS: Stated complaint: CP Other details as noted in HPI Constitutional: denies: chills, fever Eyes: denies: eye pain, eye discharge, vision change ENT: denies: ear pain, throat pain Respiratory: shortness of breath. denies: cough, wheezing Cardiovascular: denies: chest pain, palpitations Endocrine: no symptoms reported Gastrointestinal: denies: abdominal pain, nausea, diarrhea Genitourinary: denies: urgency, dysuria Musculoskeletal: denies: back pain, joint swelling, arthralgia Skin: denies: rash, lesions Neurological: denies: headache, weakness, paresthesias Psychiatric: denies: anxiety, depression Hematological/Lymphatic: denies: easy bleeding, easy bruising ED Past Medical Hx - Past Medical History Previous Medical History?: Yes Hx Hypertension: Yes Hx Asthma: Yes Additional medical history: GOUT, BUNION - Surgical History Past Surgical History?: Yes Additional Surgical History: right ring finger - Family History Family history: no significant - Social History Smoking Status: Current Every Day Smoker Substance Use Type: Alcohol - Medications Home Medications: Home Medications Medication Instructions Recorded Confirmed Last Taken Type Ibuprofen 800 mg PO Q6HR PRN #15 tablet 08/03/18 Unknown Rx Ibuprofen [Motrin] 600 mg PO Q8H PRN #15 tablet 11/29/18 Unknown Rx Sulfamethoxazole/Trimethoprim 1 each PO BID 10 Days #20 tablet 11/29/18 Unknown Rx [Bactrim DS TAB] Hydrocortisone [Anucort-HC SUPPOS] 25 mg RC BID #12 supp.rect 01/13/19 Unknown Rx Erythromycin [Erythromycin Ophth 1 applic OS QID 7 Days #1 tube 03/05/19 Unknown Rx Oint] Ibuprofen [Motrin 800 MG tab] 800 mg PO Q8HR PRN #21 tablet 05/08/19 Unknown Rx methOCARBAMOL [Robaxin TAB] 1,500 mg PO Q8H PRN #18 tablet 05/08/19 Unknown Rx Ibuprofen [Motrin 800 MG tab] 800 mg PO Q8HR 7 Days #21 tablet 05/13/19 Unknown Rx Ketorolac [Toradol] 10 mg PO Q6H PRN #20 tablet 07/29/19 Unknown Rx Colchicine [Gloperba] 0.6 mg PO Q8H PRN #15 solution 08/02/19 Unknown Rx Indomethacin 50 mg PO Q8H PRN #45 capsule 08/02/19 Unknown Rx predniSONE [Deltasone] 60 mg PO QDAY #15 tab 08/02/19 Unknown Rx traMADoL [Ultram] 50 mg PO Q6HR PRN #12 tablet 08/02/19 Unknown Rx Hyoscyamine Subl [Levsin Sl 0.125 0.125 mg SL Q6HR PRN #20 tab 08/04/19 Unknown Rx TAB] Ondansetron [Zofran ODT TAB] 8 mg PO Q12HR #14 tab.rapdis 08/04/19 Unknown Rx dexAMETHasone [Dexamethasone] 4 mg PO BID #10 tablet 08/05/19 Unknown Rx Acetaminophen/Codeine [Tylenol 1 tab PO Q6H PRN #12 tab 08/07/19 Unknown Rx /Codeine # 3 tab] Sulfamethoxazole/Trimethoprim 1 each PO BID #14 tablet 08/07/19 Unknown Rx [Bactrim DS TAB] Chlorhexidine Gluconate [Hibiclens] 10 ml TP BID #240 liquid 08/08/19 Unknown Rx cephALEXin [Keflex] 500 mg PO Q6HR #40 capsule 08/08/19 Unknown Rx Dicyclomine [Bentyl] 20 mg PO Q8H 3 Days #9 tablet 08/12/19 Unknown Rx Famotidine [Pepcid] 20 mg PO BID 5 Days #10 tablet 08/12/19 Unknown Rx Promethazine [Phenergan TAB] 25 mg PO Q6HR PRN #12 tab 08/12/19 Unknown Rx hydroCHLOROthiazide [HCTZ] 25 mg PO QDAY 30 Days #30 tablet 08/12/19 Unknown Rx methylPREDNISolone [Medrol 4MG 4 mg PO DAILY 6 Days #1 pack 08/15/19 Unknown Rx DOSEPAK (21 tabs)] ED Physical Exam - General Limitations: No Limitations General appearance: alert, in no apparent distress - Head Head exam: Present: atraumatic, normocephalic - Eye Eye exam: Present: normal appearance - ENT ENT exam: Present: mucous membranes moist - Neck Neck exam: Present: normal inspection - Respiratory Respiratory exam: Present: normal lung sounds bilaterally, chest wall tenderness. Absent: respiratory distress, wheezes, rales, accessory muscle use, decreased breath sounds, prolonged expiratory - Cardiovascular Cardiovascular Exam: Present: regular rate, normal rhythm. Absent: systolic murmur, diastolic murmur, rubs, gallop - GI/Abdominal GI/Abdominal exam: Present: soft, normal bowel sounds. Absent: distended, tenderness, guarding - Rectal Rectal exam: Present: deferred - Extremities Exam Extremities exam: Present: normal inspection - Back Exam Back exam: Present: normal inspection - Neurological Exam Neurological exam: Present: alert, oriented X3 - Psychiatric Psychiatric exam: Present: normal affect, normal mood - Skin Skin exam: Present: warm, dry, intact, normal color. Absent: rash ED Course Vital Signs 08/14/19 08/15/19 08/15/19 23:03 00:50 01:00 Pulse Rate 74 66 69 Respiratory 15 13 Rate Blood Pressure 175/101 167/118 O2 Sat by Pulse 100 100 Oximetry 08/15/19 08/15/19 08/15/19 02:00 03:00 04:00 Pulse Rate 68 60 62 Respiratory 19 14 16 Rate Blood Pressure 146/86 144/91 144/91 O2 Sat by Pulse 100 100 99 Oximetry - Reevaluation(s) Reevaluation #1: Patient states that pain is better. Patient states he is resting better. Patient's blood pressure has improved. I discussed all results and clinical findings with patient. I discussed plan of care with patient. Patient agrees with plan of care. Patient is stable for discharge. Patient will be discharged home. Patient given discharge instructions. Patient voiced understanding of discharge instructions. Patient's information faxed over to a local cardiology group so that they can further evaluate the patient's chest pain. 08/15/19 04:15 DANIELLE score - Danielle Score Age > 65: (0) No Aspirin use within the Past 7 Days: (0) No 3 or more CAD Risk Factors: (0) No 2 or more Angina events in past 24 hrs: (0) No Known CAD with more than 50% Stenosis: (0) No Elevated Cardiac Markers: (0) No ST Deviation Greater than 0.5mm: (0) No DANIELLE Score: 0 ED Medical Decision Making - Lab Data Result diagrams: 08/15/19 00:24 08/15/19 00:24 - EKG Data -: EKG Interpreted by Me EKG shows normal: sinus rhythm, axis, intervals, QRS complexes, ST-T waves Rate: normal - Radiology Data Radiology results: report reviewed, image reviewed CHEST 1 VIEW 08/14/2019 11:43 PM INDICATION / CLINICAL INFORMATION: Chest Pain. COMPARISON: 08/12/19 FINDINGS: SUPPORT DEVICES: None. HEART / MEDIASTINUM: No significant abnormality. LUNGS / PLEURA: No significant pulmonary or pleural abnormality. No pneumothorax. ADDITIONAL FINDINGS: Minimal lumbar scoliosis, unchanged. IMPRESSION: 1. No acute findings. No significant change. - Medical Decision Making Patient is a 33-year-old male that presents emergency room with complaints of chest pain and chest wall tenderness. Patient's labs unremarkable. Patient had 2- troponins. Patient's heart score shows low risk is less than 2. Patient's information faxed over to a local license issuer for further evaluation treatment. Patient EKG negative for acute findings. Patient chest x-ray negative for acute findings. Patient stable for discharge. Patient clinical findings are consistent with costochondritis and chest pain. Patient's blood pressure stabilized. Patient given a Medrol Dosepak for costochondritis. - Differential Diagnosis Chest pain, costochondritis, chest wall pain. Critical care attestation.: If time is entered above; I have spent that time in minutes in the direct care of this critically ill patient, excluding procedure time. ED Disposition Clinical Impression: Costochondritis, acute Hypertension Qualifiers: Hypertension type: essential hypertension Qualified Code(s): I10 - Essential (primary) hypertension Chest pain Qualifiers: Chest pain type: unspecified Qualified Code(s): R07.9 - Chest pain, unspecified Disposition: - TO HOME OR SELFCARE Is pt being admited?: No Does the pt Need Aspirin: No Condition: Stable Instructions: Chest Pain (ED), Heart Healthy Diet (ED), Costochondritis (ED), How to Take a Blood Pressure (ED), DASH Eating Plan (ED), Low Sodium Diet (ED), Hypertension (ED) Additional Instructions: Patient to follow-up with primary care in 2 to 3 days. Patient to follow-up with license issuer in 2 to 3 days. Patient to rest. Patient to increase water. Patient to avoid strenuous exercise or heavy lifting until cleared by license issuer. Patient to take Tylenol or ibuprofen as needed for pain. Patient to take meds as directed. Patient to return to the ER if condition worsens, changes or new symptoms arise. Prescriptions: methylPREDNISolone [Medrol 4MG DOSEPAK (21 tabs)] 4 mg PO DAILY 6 Days #1 pack Referrals: PRIMARY CARE, [Primary Care Provider] - 2-3 Days CHUCK FAROOQ MD [Staff Physician] - 2-3 Days Time of Disposition: 04:18
[2019-08-15 00:44] LABS: Basophils # (Auto) 0.1 K/mm3 (0.0-0.1); Basophils % (Auto) 0.7 % (0.0-1.8); Eosinophils # (Auto) 0.1 K/mm3 (0.0-0.4); Eosinophils % (Auto) 0.6 % (0.0-4.3); Hematocrit 43.3 % (35.5-45.6); Hemoglobin 13.7 gm/dl (11.8-15.2); Lymphocytes % (Auto) 35.1 % (13.4-35.0); Mean Corpuscular HGB Conc 32 % (32-34); Mean Corpuscular Volume 88 fl (84-94); Monocytes # (Auto) 0.8 K/mm3 (0.0-0.8); Monocytes % (Auto) 9.7 % (0.0-7.3); Platelet Count 245 K/mm3 (140-440); Red Blood Count 4.92 M/mm3 (3.65-5.03); Red Cell Distribution Width 15.4 % (13.2-15.2)
[2019-08-15 01:11] LABS: BUN/Creatinine Ratio 15; Blood Urea Nitrogen 12 mg/dL (9-20); Calcium 9.8 mg/dL (8.4-10.2); Hemolysis Index 5
[2019-08-15 04:14] VITALS: BP 144/91
== END 2019-08-15 04:54 | disposition home or self-care (01) ==
LOC: ED 22:53
DX: M94.0 Chondrocostal junction syndrome [Tietze] (principal); I10 Essential (primary) hypertension; R07.9 Chest pain, unspecified; F17.200 Nicotine dependence, unspecified, uncomplicated; J45.909 Unspecified asthma, uncomplicated
CPT/HCPCS: 36415; 71045; 80048; 84484; 85025; 93005; 93010

== ENCOUNTER 2022-02-09 01:03 | Emergency (ER) | payer SELFPAY ==
--- NOTE | 2022-02-09 02:42 | XRay Report ---
LEFT RIBS, 2 VIEWS INDICATION / CLINICAL INFORMATION: INJURY. COMPARISON: None available. FINDINGS: No left rib fracture identified. Left lung is well aerated and clear. No pneumothorax or hemothorax noted. Heart size and pulmonary vascularity are normal. IMPRESSION: 1. No visible left rib fracture. 2. No acute pulmonary disease. Signer Name: Kacey Barajas MD Signed: 02/09/2022 2:37 AM Workstation Name: [id number]
== END 2022-02-09 04:50 | disposition left against medical advice (07) ==
LOC: ED 01:03
DX: R07.81 Pleurodynia (principal); Z53.21 Procedure and treatment not carried out due to patient leaving prior to being seen by health care provider

== ENCOUNTER 2022-02-09 21:54 | Emergency (ER) | payer SELFPAY ==
--- NOTE | 2022-02-10 08:54 | Emergency Department Report ---
ED General Adult HPI - General Chief complaint: Pain General Stated complaint: RIB PAIN Source: patient Mode of arrival: Ambulatory Limitations: No Limitations - History of Present Illness Initial comments: 36-year-old male presents to the ED complaining of left rib painx1 day. Patient was stretching and doing examination. He denies any obvious trauma. No obvious deformity noted. No swelling noted. He stated he started working at [employer] x1 day ago when he noticed the pain. . Patient states that pain is a current 0 out of 10 at present time. Patient denies any shortness of breath cough or chest pain at present. He is alert and oriented x3. No acute distress noted. No ill appearance noted. - Related Data Previous Rx's Medication Instructions Recorded Last Taken Type Ibuprofen 800 mg PO Q6HR PRN #15 tablet 08/03/18 Unknown Rx Sulfamethoxazole/Trimethoprim 1 each PO BID 10 Days #20 tablet 11/29/18 Unknown Rx [Bactrim DS TAB] Hydrocortisone [Anucort-HC SUPPOS] 25 mg RC BID #12 supp.rect 01/13/19 Unknown Rx Erythromycin [Erythromycin Ophth 1 applic OS QID 7 Days #1 tube 03/05/19 Unknown Rx Oint] Ibuprofen [Motrin 800 MG tab] 800 mg PO Q8HR PRN #21 tablet 05/08/19 Unknown Rx methOCARBAMOL [Robaxin TAB] 1,500 mg PO Q8H PRN #18 tablet 05/08/19 Unknown Rx Ibuprofen [Motrin 800 MG tab] 800 mg PO Q8HR 7 Days #21 tablet 05/13/19 Unknown Rx Ketorolac [Toradol] 10 mg PO Q6H PRN #20 tablet 07/29/19 Unknown Rx Colchicine [Gloperba] 0.6 mg PO Q8H PRN #15 solution 08/02/19 Unknown Rx Indomethacin 50 mg PO Q8H PRN #45 capsule 08/02/19 Unknown Rx predniSONE [Deltasone] 60 mg PO QDAY #15 tab 08/02/19 Unknown Rx traMADoL [Ultram] 50 mg PO Q6HR PRN #12 tablet 08/02/19 Unknown Rx Hyoscyamine Subl [Levsin Sl 0.125 0.125 mg SL Q6HR PRN #20 tab 08/04/19 Unknown Rx TAB] Ondansetron [Zofran ODT TAB] 8 mg PO Q12HR #14 tab.rapdis 08/04/19 Unknown Rx dexAMETHasone [Dexamethasone] 4 mg PO BID #10 tablet 08/05/19 Unknown Rx Acetaminophen/Codeine [Tylenol 1 tab PO Q6H PRN #12 tab 08/07/19 Unknown Rx /Codeine # 3 tab] Sulfamethoxazole/Trimethoprim 1 each PO BID #14 tablet 08/07/19 Unknown Rx [Bactrim DS TAB] Chlorhexidine Gluconate [Hibiclens] 10 ml TP BID #240 liquid 08/08/19 Unknown Rx Dicyclomine [Bentyl] 20 mg PO Q8H 3 Days #9 tablet 08/12/19 Unknown Rx Famotidine [Pepcid] 20 mg PO BID 5 Days #10 tablet 08/12/19 Unknown Rx Promethazine [Phenergan TAB] 25 mg PO Q6HR PRN #12 tab 08/12/19 Unknown Rx hydroCHLOROthiazide [HCTZ] 25 mg PO QDAY 30 Days #30 tablet 08/12/19 Unknown Rx methylPREDNISolone [Medrol 4MG 4 mg PO DAILY 6 Days #1 pack 08/15/19 Unknown Rx DOSEPAK (21 tabs)] Cyclobenzaprine [Flexeril] 10 mg PO Q8H PRN #12 tablet 08/26/19 Unknown Rx DOXYCYCLINE Hyclate [Vibramycin 100 mg PO Q12HR #20 capsule 08/26/19 Unknown Rx CAP] Ibuprofen [Motrin 600 MG tab] 600 mg PO Q8H PRN #15 tablet 08/26/19 Unknown Rx cephALEXin [Keflex] 500 mg PO Q6HR #40 capsule 08/26/19 Unknown Rx Allergies Allergy/AdvReac Type Severity Reaction Status Date / Time No Known Allergies Allergy Verified 07/29/19 00:23 ED Review of Systems ROS: Stated complaint: RIB PAIN Other details as noted in HPI Constitutional: denies: chills, fever Eyes: denies: eye pain, eye discharge, vision change ENT: denies: ear pain, throat pain Respiratory: denies: cough, shortness of breath, wheezing Cardiovascular: denies: chest pain, palpitations Endocrine: no symptoms reported Gastrointestinal: denies: abdominal pain, nausea, diarrhea Genitourinary: denies: urgency, dysuria Musculoskeletal: denies: back pain, joint swelling, arthralgia Skin: denies: rash, lesions Neurological: denies: headache, weakness, paresthesias Psychiatric: denies: anxiety, depression Hematological/Lymphatic: denies: easy bleeding, easy bruising ED Past Medical Hx - Past Medical History Hx Hypertension: Yes Hx Asthma: Yes Additional medical history: GOUT, BUNION - Surgical History Additional Surgical History: right ring finger - Social History Smoking Status: Unknown if ever smoked Substance Use Type: None - Medications Home Medications: Home Medications Medication Instructions Recorded Confirmed Last Taken Type Ibuprofen 800 mg PO Q6HR PRN #15 tablet 08/03/18 Unknown Rx Sulfamethoxazole/Trimethoprim 1 each PO BID 10 Days #20 tablet 11/29/18 Unknown Rx [Bactrim DS TAB] Hydrocortisone [Anucort-HC SUPPOS] 25 mg RC BID #12 supp.rect 01/13/19 Unknown Rx Erythromycin [Erythromycin Ophth 1 applic OS QID 7 Days #1 tube 03/05/19 Unknown Rx Oint] Ibuprofen [Motrin 800 MG tab] 800 mg PO Q8HR PRN #21 tablet 05/08/19 Unknown Rx methOCARBAMOL [Robaxin TAB] 1,500 mg PO Q8H PRN #18 tablet 05/08/19 Unknown Rx Ibuprofen [Motrin 800 MG tab] 800 mg PO Q8HR 7 Days #21 tablet 05/13/19 Unknown Rx Ketorolac [Toradol] 10 mg PO Q6H PRN #20 tablet 07/29/19 Unknown Rx Colchicine [Gloperba] 0.6 mg PO Q8H PRN #15 solution 08/02/19 Unknown Rx Indomethacin 50 mg PO Q8H PRN #45 capsule 08/02/19 Unknown Rx predniSONE [Deltasone] 60 mg PO QDAY #15 tab 08/02/19 Unknown Rx traMADoL [Ultram] 50 mg PO Q6HR PRN #12 tablet 08/02/19 Unknown Rx Hyoscyamine Subl [Levsin Sl 0.125 0.125 mg SL Q6HR PRN #20 tab 08/04/19 Unknown Rx TAB] Ondansetron [Zofran ODT TAB] 8 mg PO Q12HR #14 tab.rapdis 08/04/19 Unknown Rx dexAMETHasone [Dexamethasone] 4 mg PO BID #10 tablet 08/05/19 Unknown Rx Acetaminophen/Codeine [Tylenol 1 tab PO Q6H PRN #12 tab 08/07/19 Unknown Rx /Codeine # 3 tab] Sulfamethoxazole/Trimethoprim 1 each PO BID #14 tablet 08/07/19 Unknown Rx [Bactrim DS TAB] Chlorhexidine Gluconate [Hibiclens] 10 ml TP BID #240 liquid 08/08/19 Unknown Rx Dicyclomine [Bentyl] 20 mg PO Q8H 3 Days #9 tablet 08/12/19 Unknown Rx Famotidine [Pepcid] 20 mg PO BID 5 Days #10 tablet 08/12/19 Unknown Rx Promethazine [Phenergan TAB] 25 mg PO Q6HR PRN #12 tab 08/12/19 Unknown Rx hydroCHLOROthiazide [HCTZ] 25 mg PO QDAY 30 Days #30 tablet 08/12/19 Unknown Rx methylPREDNISolone [Medrol 4MG 4 mg PO DAILY 6 Days #1 pack 08/15/19 Unknown Rx DOSEPAK (21 tabs)] Cyclobenzaprine [Flexeril] 10 mg PO Q8H PRN #12 tablet 08/26/19 Unknown Rx DOXYCYCLINE Hyclate [Vibramycin 100 mg PO Q12HR #20 capsule 08/26/19 Unknown Rx CAP] Ibuprofen [Motrin 600 MG tab] 600 mg PO Q8H PRN #15 tablet 08/26/19 Unknown Rx cephALEXin [Keflex] 500 mg PO Q6HR #40 capsule 08/26/19 Unknown Rx ED Physical Exam - General Limitations: No Limitations General appearance: alert, in no apparent distress - Head Head exam: Present: atraumatic, normocephalic - Eye Eye exam: Present: normal appearance - ENT ENT exam: Present: mucous membranes moist - Neck Neck exam: Present: normal inspection - Respiratory Respiratory exam: Present: normal lung sounds bilaterally. Absent: respiratory distress - Cardiovascular Cardiovascular Exam: Present: regular rate, normal rhythm. Absent: systolic murmur, diastolic murmur, rubs, gallop - GI/Abdominal GI/Abdominal exam: Present: soft, normal bowel sounds - Rectal Rectal exam: Present: deferred - Extremities Exam Extremities exam: Present: normal inspection - Back Exam Back exam: Present: normal inspection - Neurological Exam Neurological exam: Present: alert, oriented X3 - Psychiatric Psychiatric exam: Present: normal affect, normal mood - Skin Skin exam: Present: warm, dry, intact, normal color. Absent: rash ED Course Vital Signs 02/10/22 01:46 Temperature 97.7 F Pulse Rate 83 Respiratory 19 Rate Blood Pressure 169/122 [Right] O2 Sat by Pulse 98 Oximetry ED Medical Decision Making - Medical Decision Making 36-year-old male presents to the ED complaining of left rib painx1 day. Patient was stretching and doing examination. He denies any obvious trauma. No obvious deformity noted. No swelling noted. He stated he started working at [employer] x1 day ago when he noticed the pain. . Patient states that pain is a current 0 out of 10 at present time. Patient denies any shortness of breath cough or chest pain at present. He is alert and oriented x3. No acute distress noted. No ill appearance noted. Physical examination is unremarkable. Rechecked the patient is resting quietly , comfortable and feeling better. I discussed the results of diagnostic study, my clinical impression and the plan for further treatment with the patient. Patient agrees with plan and discharge at this present time. All question addressed. I have given the patient instruction regarding a diagnosis ,expectation ,follow- up and return precaution. I explained to the patient that emergent condition may arise and to return to the ED for new worsen and any new persisting condition. I have explained the importance of following up with the primary care physician or referral physician listed below has instructed. The patient verbalized understanding of discharge instruction. Critical care attestation.: If time is entered above; I have spent that time in minutes in the direct care of this critically ill patient, excluding procedure time. ED Disposition Clinical Impression: Rib pain on left side Hypertension Qualifiers: Hypertension type: primary hypertension Qualified Code(s): I10 - Essential (p rimary) hypertension Disposition: 01 HOME / SELF CARE / HOMELESS Is pt being admited?: No Does the pt Need Aspirin: No Condition: Stable Instructions: Nonspecific Chest Pain, Adult, Hypertension (ED)
[2022-02-10 10:32] VITALS: BP 151/94
== END 2022-02-10 10:30 | disposition home or self-care (01) ==
LOC: ED 21:54
DX: R07.81 Pleurodynia (principal); I10 Essential (primary) hypertension; J45.909 Unspecified asthma, uncomplicated
CPT/HCPCS: 99282